=== PATIENT | female | born 1960 | race Two or more races ===

== ENCOUNTER 2017-11-16 22:30 | Emergency (ER) | payer OTHER ==
[~2017-11-16] VITALS: Ht 154.9 cm; Wt 72.6 kg
[~2017-11-16 22:30] MED LIST: ARIP10TA9 PO; ASPI-605 PO; DULO20CA18 PO; GABA600T PO; INSU100V7 SQ; LEVO100T9 PO; METF10002 PO; OMEP20TA5 PO; SIMV20TA6 PO
[2017-11-16 23:52] LABS: APPEARANCE,URINE SL CLOUDY (CLEAR); BILIRUBIN,URINE NEGATIVE (NEGATIVE); BLOOD, URINE NEGATIVE Ery/uL (NEGATIVE); COLOR,URINE YELLOW (YELLOW); KETONES,URINE 2+ (NEGATIVE); LEUKOCYTE ESTERASE ,URINE TRACE (NEGATIVE); NITRITE, URINE NEGATIVE (NEGATIVE); PROTEIN,URINE NEGATIVE (NEGATIVE); UGLUCOSE 3+ mg/dL (NEGATIVE); UROBILINOGEN,URINE 0.2 EU/dL (0.2)
[2017-11-16 23:59] LABS: BACTERIA,URINE 2+ /HPF (None Seen); WBC,URINE 51-80 /HPF (0-3)
[2017-11-17] LABS: SQUAMOUS EPITHELIAL CELL,UR Moderate /HPF (None Seen)
--- NOTE | 2017-11-17 | NUR ---
PT [facility]HIANNA FROM [facility] TO ER BED 11. C/O DIFFUSE ABDOMINAL PAIN W/ NAUSEA AND VOMITING SINCE 11/12/17. GOWNED AND PLACED ON MONITOR. STABLE VITALS. WILL CONT TO MONITOR.
--- NOTE | 2017-11-17 00:14 | NUR ---
IV LINE STARTED BLOOD DRAWN AND SENT TO LAB.
[2017-11-17] MEDS ORDERED: CEFTRIAXONE 1 G VIAL ONE (00:48)
[2017-11-17] MEDS ORDERED: ONDANSETRON HCL/PF 4 MG/2 ML VIAL ONE (00:49)
[2017-11-17] MEDS ORDERED: MORPHINE SULFATE INJ 4 MG/ML DISP.SYRIN ONE (00:49)
[2017-11-17] MEDS: IV NS 0.9% 500 ML BAG IV ONE (00:50)
[2017-11-17] MEDS: ONDANSETRON HCL/PF 4 MG/2 ML VIAL IVP ONE (00:51)
[2017-11-17] MEDS: MORPHINE SULFATE INJ 2 MG/ML DISP.SYRIN IV ONE (00:53)
[2017-11-17] MEDS: CEFTRIAXONE 1GM BAG (ER ONLY) 1 GM/50 ML PIGGYBACK IV ONE (01:00)
[2017-11-17 01:03] LABS: BASOPHILS % (AUTO) 0.2 % (0.0-2.0); EOSINOPHILS # (AUTO) 0.3 /CMM (0.0-0.7); EOSINOPHILS % (AUTO) 3.7 % (0.0-6.0); HEMATOCRIT 38 % (33-45); HEMOGLOBIN 13.1 g/dL (11.5-14.8); LYMPHOCYTES # (AUTO) 2.1 /CMM (0.8-4.8); LYMPHOCYTES % (AUTO) 29.1 % (20.0-44.0); MEAN CORPUSCULAR HEMOGLOBIN 34 PG (26.0-33.0); MEAN CORPUSCULAR HGB CONC 35 g/dl (31.0-36.0); MEAN CORPUSCULAR VOLUME 97 fL (82-100); MONOCYTES # (AUTO) 0.4 /CMM (0.1-1.30); MONOCYTES % (AUTO) 5.9 % (2.0-12.0); NEUTROPHILS # (AUTO) 4.5 /CMM (1.8-8.9); NEUTROPHILS % (AUTO) 61.1 % (43.0-81.0); PLATELET COUNT (AUTO) 268 /CMM (150-450); RDW COEFFICIENT OF VARIATION 14.3 (11.5-15.0); RED BLOOD CELL COUNT(AUTO) 3.92 MIL/uL (4.0-5.2); WHITE BLOOD COUNT (AUTO) 7.3 K/uL (4.3-11.0)
[2017-11-17 01:18] LABS: ALANINE AMINOTRANSFERASE 24 U/L (12-78); ALKALINE PHOSPHATASE 128 U/L (46-116); ASPARTATE AMINOTRANSFERASE 23 U/L (15-37); BILIRUBIN,TOTAL 0.3 mg/dL (0.2-1.0); CALCIUM, SERUM 9.5 mg/dL (8.5-10.1); CARBON DIOXIDE 24 mmol/L (21-32); CHLORIDE 97 mmol/L (98-107); LIPASE 53 U/L (73-393); POTASSIUM 4.5 mmol/L (3.5-5.1); SODIUM SERUM 131 mmol/L (136-145); TOTAL PROTEIN, SERUM 7.4 g/dL (6.4-8.2); UREA NITROGEN, BLOOD 25 mg/dL (7-18)
[2017-11-17 01:20] LABS: TROPONIN I < 0.017 ng/mL (0.00-0.056)
[2017-11-17 01:24] LABS: GLUCOSE 423 mg/dL (74-106)
--- NOTE | 2017-11-17 01:24 | NUR ---
REPORT TO CHARGE NURSE JOSUE FOR ANGELINA.
[2017-11-17 01:37] LABS: ALBUMIN 3.1 g/dL (3.4-5.0)
[2017-11-17 03:07] VITALS: BP 130/78
--- NOTE | 2017-11-17 03:08 | NUR ---
Patient discharged to home in stable condition. Written and verbal after care instructions given. Patient verbalizes understanding of instruction. IV removed. Catheter intact and site benign. Pressure and 4x4 applied to site. No bleeding noted. Pt ambulatory with a steady gait. VSS, NAD noted on DC. Denies complaint on DC.
== END 2017-11-17 03:09 | disposition home or self-care (01) ==
LOC: ER 22:35
DX: N39.0 Urinary tract infection, site not specified (principal); E11.65 Type 2 diabetes mellitus with hyperglycemia; I10 Essential (primary) hypertension; J44.9 Chronic obstructive pulmonary disease, unspecified; F32.9 Major depressive disorder, single episode, unspecified; F41.9 Anxiety disorder, unspecified; Z88.8 Allergy status to other drugs, medicaments and biological substances; Z79.82 Long term (current) use of aspirin; Z79.4 Long term (current) use of insulin
CPT/HCPCS: 36415; 71045; 74176; 80048; 80076; 81001; 82962; 83690; 84484; 85025; 87086; 93005; 96365; 96375; 99285; A4606; J0696 ×2; J2270; J2405; J7040; J7060; Z7610; 81000-TC

== ENCOUNTER 2018-03-15 14:46 | Emergency (ER) | payer OTHER ==
[~2018-03-15] VITALS: Ht 152.4 cm; Wt 65.8 kg
[~2018-03-15 14:46] MED LIST changes: +METF-442 PO; -METF10002 PO
--- NOTE | 2018-03-15 14:50 | NUR ---
PATIENT TO ED DT CHRONIC BACK PAIN, 07/22, NON RADIATING, WORSE TODAY. VSS
[2018-03-15] MEDS ORDERED: ONDANSETRON HCL/PF 4 MG/2 ML VIAL ONE (15:48)
[2018-03-15] MEDS ORDERED: MORPHINE SULFATE INJ 4 MG/ML DISP.SYRIN ONE (15:50)
[2018-03-15] MEDS ORDERED: ONDANSETRON 4 MG TAB.RAPDIS ONE (15:53)
[2018-03-15 15:58] VITALS: BP 112/80
--- NOTE | 2018-03-15 15:58 | NUR ---
Patient discharged to home in stable condition. Written and verbal after care instructions given. Patient verbalizes understanding of instruction.
[2018-03-15] MEDS ORDERED: MORPHINE SULFATE INJ 2 MG/ML DISP.SYRIN IM ONE (16:00)
[2018-03-15] MEDS ORDERED: ONDANSETRON 4 MG TAB.RAPDIS PO ONE (16:00)
== END 2018-03-15 15:59 | disposition home or self-care (01) ==
LOC: ER 14:52
DX: M54.5 Low back pain (principal); G89.29 Other chronic pain; I10 Essential (primary) hypertension; E11.9 Type 2 diabetes mellitus without complications; J44.9 Chronic obstructive pulmonary disease, unspecified; F32.9 Major depressive disorder, single episode, unspecified; F41.9 Anxiety disorder, unspecified; Z88.8 Allergy status to other drugs, medicaments and biological substances; Z79.4 Long term (current) use of insulin; Z79.82 Long term (current) use of aspirin
CPT/HCPCS: 96372; 99283; A4606; J2270; Q0162; Z7610; J2405

== ENCOUNTER 2018-03-18 16:38 | Emergency (ER) | payer OTHER ==
[~2018-03-18] VITALS: Ht 152.4 cm; Wt 65.8 kg
[2018-03-18 16:49] VITALS: BP 100/67
[2018-03-18] MEDS ORDERED: KETOROLAC TROMETHAMINE INJ 30 MG/ML VIAL IM ONE (17:00)
[2018-03-18] MEDS ORDERED: KETOROLAC TROMETHAMINE INJ 30 MG/ML VIAL ONE (17:12)
== END 2018-03-18 17:55 | disposition home or self-care (01) ==
LOC: ER 16:41
DX: M54.5 Low back pain (principal); I10 Essential (primary) hypertension; J44.9 Chronic obstructive pulmonary disease, unspecified; E11.9 Type 2 diabetes mellitus without complications; F20.9 Schizophrenia, unspecified; Z88.8 Allergy status to other drugs, medicaments and biological substances; Z79.82 Long term (current) use of aspirin; Z79.4 Long term (current) use of insulin
CPT/HCPCS: 72110-TC; A4606; J1885; Z7610

== ENCOUNTER 2021-01-17 09:05 | Inpatient (IN) | payer OTHER ==
[~2021-01-17] VITALS: Ht 162.6 cm; Wt 71.2 kg
[2021-01-17] VITALS (23 sets, daily range): BP systolic 90–118; BP diastolic 44–67
[~2021-01-17 09:05] MED LIST changes: -DULO20CA18 PO; +DULO20CA19 PO; +SIMV-46 PO; -SIMV20TA6 PO
--- NOTE | 2021-01-17 09:05 | NUR ---
PT BIBRA [facility] C/O HYPERGLYCEMIA AND SOB. PT IS AAOX4, NOTED MILD RESPIRATORY DISTRESS, HOOKED TO O2 AT 4 LPM VIA NC AND PHOTOGRAPH INSPECTOR. KEPT RESTED AND COMFORTABLE. WILL CONTINUE TO MONITOR.
[2021-01-17] MEDS ORDERED: IV NS 0.9% 1,000 ML BAG IV ONE ×2 (09:06→09:30)
--- NOTE | 2021-01-17 09:10 | NUR ---
AT BEDSIDE FOR EVAL
--- NOTE | 2021-01-17 09:18 | NUR ---
SEEN AND EXAMINED BY .
--- NOTE | 2021-01-17 09:25 | NUR ---
IV LINE ESTABLISHED BLOOD DRAWN AND SENT TO LAB.
[2021-01-17 09:44] LABS: BASOPHILS % (AUTO) 0.3 % (0.0-2.0); HEMOGLOBIN 7.5 g/dL (11.5-14.8)
--- NOTE | 2021-01-17 09:53 | NUR ---
URINE SPECIMEN COLLECTED ADN SENT TO LAB.
[2021-01-17 09:55] LABS: EOSINOPHILS % (AUTO) 0.2 % (0.0-6.0); HEMATOCRIT 24 % (33-45); LYMPHOCYTES % (AUTO) 18.3 % (20.0-44.0); MEAN CORPUSCULAR HGB CONC 31 g/dl (31.0-36.0); MEAN CORPUSCULAR VOLUME 118 fL (82-100); MONOCYTES # (AUTO) 0.4 /CMM (0.1-1.30); MONOCYTES % (AUTO) 7.4 % (2.0-12.0); NEUTROPHILS # (AUTO) 3.8 /CMM (1.8-8.9); NEUTROPHILS % (AUTO) 73.8 % (43.0-81.0); PLATELET COUNT (AUTO) 279 /CMM (150-450); RED BLOOD CELL COUNT(AUTO) 2.06 MIL/uL (4.0-5.2); WHITE BLOOD COUNT (AUTO) 5.2 K/uL (4.3-11.0)
[2021-01-17 09:57] LABS: BILIRUBIN,URINE Negative (NEGATIVE); COLOR,URINE YELLOW (YELLOW); LEUKOCYTE ESTERASE ,URINE Negative (NEGATIVE); NITRITE, URINE Negative (NEGATIVE); PROTEIN,URINE Negative (NEGATIVE); UGLUCOSE 500 MG/DL mg/dL (NEGATIVE); UROBILINOGEN,URINE 0.2 EU/dL (0.2)
[2021-01-17 10:09] LABS: BACTERIA,URINE Rare /HPF (None Seen); SQUAMOUS EPITHELIAL CELL,UR 0-2 /HPF (None Seen); WBC,URINE 0-2 /HPF (0-3)
[2021-01-17] MEDS ORDERED: INSU100V30 SQ (10:09)
[2021-01-17] MEDS ORDERED: MULT-447 PO (10:09)
[2021-01-17] MEDS ORDERED: QUET25TA PO ×2 (10:09)
[2021-01-17] MEDS ORDERED: BENZ-13 PO (10:09)
[2021-01-17] MEDS ORDERED: ZINC1CAP2 PO (10:09)
[2021-01-17] MEDS ORDERED: PROM6.256 PO (10:09)
[2021-01-17] MEDS ORDERED: MAGN64TA13 PO (10:09)
[2021-01-17] MEDS ORDERED: PANT40TA2 PO (10:09)
[2021-01-17] MEDS ORDERED: MAGN400O6 PO (10:09)
[2021-01-17] MEDS ORDERED: SENN-261 PO (10:09)
[2021-01-17] MEDS ORDERED: ALBU18HF2 IH (10:09)
[2021-01-17] MEDS ORDERED: NA P133E RC (10:09)
[2021-01-17] MEDS ORDERED: AMIN30LI2 PO (10:09)
[2021-01-17] MEDS ORDERED: ACET-868 PO (10:09)
[2021-01-17] MEDS ORDERED: NPH,100V SQ (10:09)
[2021-01-17] MEDS ORDERED: LISI20TA30 PO (10:09)
[2021-01-17] MEDS ORDERED: DIAZ5TAB4 PO (10:09)
[2021-01-17] MEDS ORDERED: LEVO175T7 PO (10:09)
[2021-01-17] MEDS ORDERED: CASP50VI2 IV (10:09)
[2021-01-17] MEDS ORDERED: ACET-2605 PO (10:09)
[2021-01-17] MEDS ORDERED: BISA10SU11 RC (10:09)
--- NOTE | 2021-01-17 10:10 | NUR ---
covid swab done and taken to the lab
[2021-01-17 10:19] LABS: ALANINE AMINOTRANSFERASE 20 U/L (12-78); ALBUMIN 1.9 g/dL (3.4-5.0); ALKALINE PHOSPHATASE 86 U/L (46-116); ASPARTATE AMINOTRANSFERASE 11 U/L (15-37); BILIRUBIN,DIRECT 0.1 mg/dL (0.0-0.2); BILIRUBIN,TOTAL 0.3 mg/dL (0.2-1.0); CALCIUM, SERUM 7.5 mg/dL (8.5-10.1); CHLORIDE 107 mmol/L (98-107); CREATININE 1.4 mg/dL (0.6-1.3); POTASSIUM 3.2 mmol/L (3.5-5.1); SODIUM SERUM 143 mmol/L (136-145); TOTAL PROTEIN, SERUM 5.1 g/dL (6.4-8.2); UREA NITROGEN, BLOOD 24 mg/dL (7-18)
[2021-01-17 10:20] LABS: CARBON DIOXIDE 7 mmol/L (21-32); GLUCOSE 535 mg/dL (74-106)
[2021-01-17] MEDS ORDERED: INSULIN REGULAR, HUMAN 100 UNIT in IV NS 0.9% 99 ML IV PRN ×2 (10:30)
[2021-01-17] MEDS ORDERED: IV PREMIX NS + 40 MEQ KCL 1,000 L IV PRN (10:30)
--- NOTE | 2021-01-17 10:30 | NUR ---
DR JENSEN CALLED NOW TALKING TO DR GALLARDO FOR PLAN OF CARE.
--- NOTE | 2021-01-17 10:32 | NUR ---
CALLED PHARMACY FOR INSULIN DRIP.
--- NOTE | 2021-01-17 10:36 | NUR ---
GOING TO ICU 258
[2021-01-17 10:54] LABS: LYMPHOCYTES % (MANUAL) 24 % (16-48); MONOCYTES % (MANUAL) 2 % (0-11.0); NEUTROPHILS % (MANUAL) 74 (42-76)
[2021-01-17 11:09] LABS: CREATININE 1.6 mg/dL (0.6-1.3); MAGNESIUM 1.7 mg/dL (1.8-2.4); PHOSPHORUS 3.5 mg/dL (2.5-4.9)
--- NOTE | 2021-01-17 11:10 | NUR ---
REPORT GIVEN TO ABI OCHOA FOR ANGELINA.
--- NOTE | 2021-01-17 11:38 | NUR ---
RN NOTES RECEIVED PT FROM ER , A/Ox3, ON 2L O2 N/C, ON TELE SR - ST HR IN 100'S, CHRIS DRINING TO GRAVITY, L HAND IV SITE G 22 AND L AC IV SITE G 18 , CLEAN, DRY AND INTACT, PT ON INSULIN GTT AT 6U/HR AT THIS TIME, ,IVF AT 125CC /HR RUNNING , SR UP x3, CALL LIGHT WITHIN EASY REACH, BED LOCKED AND IN LOWEST POSITION, CONTINUE TO MONITOR AND CHECK BLOOD GLUCOSE Q 1 HOUR PER MD ORDER
[2021-01-17] MEDS ORDERED: BENZONATATE 100 MG CAPSULE PO PRN (13:00)
[2021-01-17] MEDS ORDERED: ACETAMINOPHEN 325 MG TABLET PO PRN (13:00)
[2021-01-17] MEDS ORDERED: INS (REG) DRIP 100 U/100 ML NS IV PRN ×2 (13:00)
[2021-01-17] MEDS ORDERED: NA PHOS,M-B/NA PHOS,DI-BA 1 EA ENEMA RC PRN (13:00)
[2021-01-17] MEDS ORDERED: MAGNESIUM HYDROXIDE 30 ML UDC PO PRN (13:00)
[2021-01-17] MEDS ORDERED: ACETAMINOPHEN ES 500 MG TABLET PO PRN (13:00)
[2021-01-17] MEDS ORDERED: LISINOPRIL (20MG) 20 MG TABLET PO SCH (13:00)
[2021-01-17] MEDS ORDERED: BISACODYL SUPP (10 MG) 10 MG/SUPP.RECT SUPP.RECT RC PRN (13:00)
[2021-01-17] MEDS ORDERED: ALBUTEROL SULFATE INH 18 GM HFA.AER.AD IH PRN (13:00)
[2021-01-17] MEDS ORDERED: DIAZEPAM 5 MG TABLET PO PRN (13:00)
[2021-01-17] MEDS ORDERED: [UNRECOGNIZED DRUG - OTHER] IV SCH ×2 (14:00)
[2021-01-17] MEDS ORDERED: KCL IV SCH ×2 (14:00)
[2021-01-17] MEDS: MICAFUNGIN SODIUM 100 MG in IV NS 0.9% 100 ML IV SCH (14:38)
[2021-01-17 15:22] LABS: CALCIUM, SERUM 8.7 mg/dL (8.5-10.1); CREATININE 1.3 mg/dL (0.6-1.3); MAGNESIUM 1.5 mg/dL (1.8-2.4); PHOSPHORUS 1.6 mg/dL (2.5-4.9)
[2021-01-17] MEDS ORDERED: LEVOFLOXACIN 500 MG /D5W 100ML 500 MG in PREMIX 1 EA IV SCH (15:30)
[2021-01-17] MEDS ORDERED: IV NS 0.9% 1,000 ML IV ONE (15:30)
[2021-01-17] MEDS ORDERED: IV D5/ 0.9% NACL 1,000 ML IV PRN (15:30)
[2021-01-17 15:59] LABS: FERRITIN 278 ng/mL (8-388)
[2021-01-17 16:03] LABS: IRON, SERUM 47 ug/dl (50-175); TOTAL IRON BINDING CAPACITY 131 ug/dl (250-450)
[2021-01-17] MEDS: LEVOFLOXACIN 750 MG /D5W 150ML 750 MG in PREMIX 1 EA IV SCH (17:16)
--- NOTE | 2021-01-17 18:00 | NUR ---
RN NOTES PT REMANINS ON INSULIN GTT , ACCU CHECK Q 1 HR, VSS STABLE, A/Ox3, ON TELE SR , WILL ENDORSE TO SANDER HAND NURSE FOR CONTINUITY OF CARE .
[2021-01-17] MEDS ORDERED: K PHOS NEUTRAL 250 MG TABLET PO ONE (18:30)
[2021-01-17] MEDS: Magnesium 1GM/D5W 100ML PREMIX 100 ML IV SCH ×2 (18:46→19:55)
--- NOTE | 2021-01-17 20:15 | NUR ---
RN NOTES LAB CAME TO DRAW BLOOD FOR BMP. PATIENT HAS INSULIN DRIP RUNNING AND NOTICED PATIENT IS VERY SENSITIVE TO PAIN AND PATIENT IS A HARD STICK CALLED AND SPOKE TO DR. JENSEN WITH ORDER TO PLACED MIDLINE. SINCE PATIENT WILL NEED MORE IV ACCESS TO START BLOOD. INFORMED PATIENT AND EDUCATE THE PATIENT REGARDING THE BLOOD TRANSFUSION AND PATIENT SIGNED CONSENT.
[2021-01-17 20:35] LABS: CALCIUM, SERUM 8.4 mg/dL (8.5-10.1)
[2021-01-17] MEDS ORDERED: INSULIN GLARGINE, 100 UNIT/ML CARTRIDGE SQ SCH (21:30)
[2021-01-17] MEDS ORDERED: DEXTROSE 50%-WATER 50 ML DISP.SYRIN IV PRN (21:30)
--- NOTE | 2021-01-17 21:30 | NUR ---
RN NOTES CALLED AND SPOKE TO DR. JENSEN REGARDING PATIENT ANION GAP OF 13 PER MD TO DC IV D5NS AND CHANGE IT TO NS @ 100 ML/HR AND GAVE LANTUS 20 UNITS NOW AND DC INSULIN DRIP AFTER 2 HOURS AND DC BMP Q4H AND START ACCUCHECK ACHS WITH MODERATE SLIDING SCALE. NOTED AND CARRIED OUT ORDERS
[2021-01-17] MEDS: IV NS 0.9% 1,000 ML IV PRN (21:53)
[2021-01-17] MEDS ORDERED: INSULIN GLARGINE, 100 UNIT/ML CARTRIDGE SQ ONE (21:55)
[2021-01-17] MEDS: BLOOD SUGAR DIAGNOSTIC 1 EACH STRIP VI SCH (22:09)
--- NOTE | 2021-01-17 22:20 | NUR ---
RN NOTES STARTED FIRST UNIT OF PRBC .. PATIENT IS AWAKE , CONSENT SIGNED BY PATIENT AT BEDSIDE. NO ADVERSE REACTION SHOWS. VSS. CONT. TO MONITOR.
[2021-01-17] MEDS: SENNOSIDES 8.6 MG TABLET PO SCH (22:34)
[2021-01-17] MEDS: QUETIAPINE FUMARATE 25 MG TABLET PO SCH (22:35)
--- NOTE | 2021-01-17 23:15 | NUR ---
RN NOTES INSULIN DRIP STOPPED AT THIS TIME. PER DR. JENSEN ORDER LAST BS CHECKED 211 MG/DL LAST ANION GAP 13
[2021-01-18] VITALS (21 sets, daily range): BP systolic 93–125; BP diastolic 46–86
--- NOTE | 2021-01-18 02:28 | NUR ---
RN NOTES FIRST UNIT OF BAG FINISHED TOLERATED WELL WITHUT ADVERSE REACTION. VSS. 2ND BAG STARTED AT THIS TIME. PATIENT ASLEEP WELL, BREATHING EVEN AND UNLABORED. DENIES PAIN OR CHEST PAIN. AFEBRILE. WILL CONTINUE TO MONITOR
--- NOTE | 2021-01-18 05:30 | NUR ---
RN NOTES SECOND UNIT OF PRBC DONE AT THIS TIME. PATIENT IS AOX4, VERBALLY RESPONSIVE . NO ADVERSE REACTION FROM BT. AFEBRILE. VSS. DENIES CHEST PAIN OR ANY DIFFICULT OF BREATHING. WILL CONTINUE TO MONITOR.
[2021-01-18] MEDS: IV NS 0.9% 1,000 ML IV PRN ×2 (06:22→14:42)
--- NOTE | 2021-01-18 06:46 | NUR ---
RN NOTES PATIENT ASLEEP WELL ON BED. NO ACUTE RESPIRATORY DISTRESS. AFEBRILE. VSS O2 2LPM VIA NC TOELRATED WELL SATURATION 99%. NSR ON TELE MONITOR. PATIENT REFUSED TO HAVE BEDBATH AT THIS TIME , ENCOURAGED GOOD HYGIENE EXPLAINED BENEFITS. PATIENT STATED THAT SHE WILL GET CLEAN LATER IN THE MORNING WILL ENDORSE CONTINUITY OF CARE TO AM NURSE.
--- NOTE | 2021-01-18 07:15 | NUR ---
RN INITIAL NOTES RECEIVED PT ASLEEP, EASILY AROUSABLE. ON 02 VIA NC AT 2LPM. NO SOB NOTED. NO SIGNS OF APIN NOTED. IV LINES IN PLACE. IVF INFUSING. PEREZ IN PLACE. FOR WOUND CONSULT. PT COMFORTABLE. CALL LIGHT WITHIN REACH.
[2021-01-18] MEDS ORDERED: LEVOTHYROXINE SODIUM 175 MCG TABLET PO SCH (07:30)
[2021-01-18] MEDS: BLOOD SUGAR DIAGNOSTIC 1 EACH STRIP VI SCH ×4 (07:34→21:38)
[2021-01-18] MEDS: PANTOPRAZOLE 40 MG TABLET.DR PO SCH (07:36)
[2021-01-18 07:55] LABS: BASOPHILS % (AUTO) 0.5 % (0.0-2.0); EOSINOPHILS % (AUTO) 3.8 % (0.0-6.0); HEMATOCRIT 35 % (33-45); HEMOGLOBIN 11.7 g/dL (11.5-14.8); LYMPHOCYTES # (AUTO) 1.6 /CMM (0.8-4.8); MEAN CORPUSCULAR HGB CONC 34 g/dl (31.0-36.0); MEAN CORPUSCULAR VOLUME 99 fL (82-100); MONOCYTES # (AUTO) 0.4 /CMM (0.1-1.30); MONOCYTES % (AUTO) 7.8 % (2.0-12.0); NEUTROPHILS # (AUTO) 3.2 /CMM (1.8-8.9); NEUTROPHILS % (AUTO) 58.9 % (43.0-81.0); PLATELET COUNT (AUTO) 221 /CMM (150-450); RED BLOOD CELL COUNT(AUTO) 3.49 MIL/uL (4.0-5.2); WHITE BLOOD COUNT (AUTO) 5.5 K/uL (4.3-11.0)
[2021-01-18 08:08] LABS: CALCIUM, SERUM 8.5 mg/dL (8.5-10.1); CREATININE 0.8 mg/dL (0.6-1.3); POTASSIUM 3.6 mmol/L (3.5-5.1)
[2021-01-18 08:11] LABS: PHOSPHORUS 1.8 mg/dL (2.5-4.9)
[2021-01-18 08:19] LABS: THYROID STIMULATING HORMONE 15.448 uIU/mL (0.358-3.74)
[2021-01-18] MEDS: MULTIVIT W/MINERALS 1 TAB TABLET PO SCH (08:22)
[2021-01-18] MEDS: ASPIRIN EC 81 MG TABLET.DR PO SCH (08:22)
[2021-01-18] MEDS: PROSOURCE / PROSTAT (PYXIS) 30 ML UDC PO SCH (08:22)
[2021-01-18] MEDS: ZINC SULFATE 220 MG CAPSULE PO SCH (08:22)
[2021-01-18] MEDS: QUETIAPINE FUMARATE 25 MG TABLET PO SCH ×2 (08:22→21:11)
[2021-01-18] MEDS: MAGNESIUM CHLORIDE 64 MG TABLET.SA PO SCH (08:23)
[2021-01-18 08:37] LABS: MAGNESIUM 1.8 mg/dL (1.8-2.4)
[2021-01-18] MEDS ORDERED: INSULIN GLARGINE, 100 UNIT/ML CARTRIDGE SQ SCH (09:00)
[2021-01-18] MEDS: K PHOS NEUTRAL 250 MG TABLET PO SCH ×3 (09:26→16:48)
[2021-01-18] MEDS: ENOXAPARIN SODIUM 40 MG/0.4 ML DISP.SYRIN SQ SCH (09:27)
[2021-01-18] MEDS: INSULIN REGULAR, HUMAN 100 UNIT/ML 3 ML VIAL SQ PRN ×2 (09:35→12:30)
--- NOTE | 2021-01-18 09:38 | NUR ---
WOUND CARE CONSULT: PT PRESENTS WITH INTACT DEEP TISSUE INJURIES TO SACRUM AND BILATERAL HEELS, PRESENT ON ADMISSION. DR STEWART AND DR SILVESTRE NOTIFIED OF CONSULT REQUESTS FOR WOUND CARE. PT IS ON TEJAS ISOFLEX LOW AIRLOSS BED. RECOMMENDATIONS MADE FOR SKN PROTECTION. DISCUSSED WITH NURSING STAFF. IN AGREEMENT WITH PLAN OF CARE. Addendum: 01/18/21 at 0940 by HONG JENSEN WNDNU Amended: Links added.
[2021-01-18] MEDS ORDERED: Z GUARD REMEDY 2 OZ OINT TP PRN (10:00)
[2021-01-18] MEDS: Z GUARD REMEDY 2 OZ OINT TP SCH (11:55)
--- NOTE | 2021-01-18 13:05 | NUR ---
RN NOTES PT TRANSFERRED TO [facility]-. PT A/O, ON 02 VIA NC AT 2LPM. NO SOB NOTED. DENIES ANY PAIN. IV LINES IN PLACE. IVF INFUSING. IN STABLE CONDITION. ABI PELAYO TOOK OVER PT'S CARE.
--- NOTE | 2021-01-18 13:08 | NUR ---
MS/media services director Patient transferred from ICU. A/O X3, vital signs recorded as per unit protocol. Denies any pain or discomfort. Oriented to new surroundings, call light within reach. Will continue to monitor and ensure safety.
[2021-01-18] MEDS: MICAFUNGIN SODIUM 100 MG in IV NS 0.9% 100 ML IV SCH (14:42)
--- NOTE | 2021-01-18 16:00 | NUR ---
MS/RN Wheezing Patient noted to be wheezing. Dr Bush called, order given for albuterol and atrovent unit dose every four hours prn.
--- NOTE | 2021-01-18 16:45 | NUR ---
MS/RN Blood sugar Blood sugar this evening 47, D50 administered and sugar rechecked after 15 minutes. Level now 136.
[2021-01-18] MEDS: PROMETHAZINE HCL SYRUP 6.25 MG/5 ML UDC PO PRN ×2 (16:48→21:11)
--- NOTE | 2021-01-18 16:55 | NUR ---
MS/RN Cough Patient requesting something for productive cough. Phenergan 5ml administered as ordered.
[2021-01-18] MEDS: IPRATROPIUM NEB FS 0.5 MG/2.5 ML AMPUL.NEB NEB PRN ×2 (17:26→22:29)
[2021-01-18] MEDS: ALBUTEROL FS 2.5 MG/0.5 ML VIAL.NEB NEB PRN ×2 (17:26→22:29)
--- NOTE | 2021-01-18 18:04 | NUR ---
MS/RN End note Patient remains in stable condition. Wheezing now less audible, coughing less. Saturation on 2l 97%, per patient she feels better and not shirt of breath. Latest blood sugar 136, patient encouraged to eat snack before sleeping to prevent blood sugar dropping overnight. IV fluids infusing at 100ml/hr, no signs of infiltration seen. Safety measures in place, call light within reach. Will continue to monitor and endorse to nightman.
--- NOTE | 2021-01-18 19:51 | NUR ---
MS RN OPENING NOTES PATIENT IN BED A/OX4; ABLE TO MAKE NEEDS KNOWN. ON O2 4LPM VIA NASAL CANNULA; TOLERATING WELL; COUGHING NOTED. F/C PATENT AND INTACT; DRAINING CLEAR YELLOW URINE. LAC #18G IV - INFUSING NS @ 100ML/HR; PATENT AND INTACT. PATIENT DENIES PAIN OR DISCOMFORT. SAFETY MEASURES IN PLACE: BED IN LOWEST LOCKED POSITION, CALL LIGHT WITHIN EASY REACH, BED ALARMS ON, SIDE RAILS UPX2. PATIENT MEDICALLY STABLE AT THIS TIME.
[2021-01-18] MEDS: SENNOSIDES 8.6 MG TABLET PO SCH (21:11)
[2021-01-18] MEDS: *INSULIN REGULAR(HUMULIN R)HUM 100 UNIT/ML VIAL SQ PRN (21:36)
[2021-01-19] MEDS: ALBUTEROL FS 2.5 MG/0.5 ML VIAL.NEB NEB PRN ×2 (04:39→08:19)
[2021-01-19] MEDS: IPRATROPIUM NEB FS 0.5 MG/2.5 ML AMPUL.NEB NEB PRN ×2 (04:39→08:19)
[2021-01-19] MEDS: IV NS 0.9% 1,000 ML IV PRN (05:50)
[2021-01-19] MEDS: PANTOPRAZOLE 40 MG TABLET.DR PO SCH (06:43)
[2021-01-19] MEDS: BLOOD SUGAR DIAGNOSTIC 1 EACH STRIP VI SCH ×5 (06:45→21:16)
[2021-01-19] MEDS: LEVOTHYROXINE SODIUM 100 MCG TABLET PO SCH (06:45)
[2021-01-19] MEDS: INSULIN REGULAR, HUMAN 100 UNIT/ML 3 ML VIAL SQ PRN (06:45)
[2021-01-19 06:56] LABS: BASOPHILS % (AUTO) 0.4 % (0.0-2.0); EOSINOPHILS % (AUTO) 4.8 % (0.0-6.0); HEMATOCRIT 34 % (33-45); HEMOGLOBIN 11.5 g/dL (11.5-14.8); LYMPHOCYTES # (AUTO) 1.9 /CMM (0.8-4.8); LYMPHOCYTES % (AUTO) 50.5 % (20.0-44.0); MEAN CORPUSCULAR HGB CONC 34 g/dl (31.0-36.0); MEAN CORPUSCULAR VOLUME 98 fL (82-100); MONOCYTES # (AUTO) 0.4 /CMM (0.1-1.30); MONOCYTES % (AUTO) 10.3 % (2.0-12.0); NEUTROPHILS # (AUTO) 1.3 /CMM (1.8-8.9); PLATELET COUNT (AUTO) 234 /CMM (150-450); RED BLOOD CELL COUNT(AUTO) 3.41 MIL/uL (4.0-5.2); WHITE BLOOD COUNT (AUTO) 3.8 K/uL (4.3-11.0)
[2021-01-19 07:02] LABS: CALCIUM, SERUM 7.9 mg/dL (8.5-10.1); CREATININE 0.6 mg/dL (0.6-1.3); PHOSPHORUS 2.8 mg/dL (2.5-4.9)
--- NOTE | 2021-01-19 07:27 | NUR ---
MS RN CLOSING NOTES PATIENT IN BED A/OX4; ABLE TO MAKE NEEDS KNOWN. ON O2 2LPM VIA NASAL CANNULA; TOLERATING WELL; COUGHING NOTED. F/C PATENT AND INTACT; DRAINING CLEAR YELLOW URINE. LAC #18G IV - INFUSING NS @ 100ML/HR; PATENT AND INTACT. PATIENT DENIES PAIN OR DISCOMFORT. SAFETY MEASURES IN PLACE: BED IN LOWEST LOCKED POSITION, CALL LIGHT WITHIN EASY REACH, BED ALARMS ON, SIDE RAILS UPX2. PATIENT MEDICALLY STABLE AT THIS TIME. ENDORSED ANGELINA TO ONCOMING MORNING RN
[2021-01-19 08:00] VITALS: BP 144/67
--- NOTE | 2021-01-19 08:17 | NUR ---
MS RN OPENING NOTES RECEIVED PATIENT IN BED, AWAKE, A/OX4; ABLE TO MAKE NEEDS KNOWN. ON O2 2LPM VIA NASAL CANNULA; TOLERATING WELL. PATIENT COMPLAINING OF COUGHING EVERY TIME SHE IS EATING, SWALLOW EVAL ORDERED, RT AT BEDSIDE. F/C PATENT AND INTACT; DRAINING CLEAR YELLOW URINE. LAC #18G IV ACCESS PRESENT INFUSING NS @ 100ML/HR. PATIENT DENIES PAIN AT THIS TIME. SAFETY PRECAUTIONS IN PLACE: BED IN LOW POSITION AND LOCKED, RAILS UP X2, CALL LIGHT WITHIN REACH, BED ALARMS ON. WILL CONTINUE TO MONITOR PATIENT.
[2021-01-19] MEDS: INSULIN GLARGINE, 100 UNIT/ML CARTRIDGE SQ SCH (09:00)
[2021-01-19] MEDS: ALBUTEROL FS 2.5 MG/0.5 ML VIAL.NEB NEB SCH ×3 (09:00→20:19)
[2021-01-19] MEDS: ZINC SULFATE 220 MG CAPSULE PO SCH (09:51)
[2021-01-19] MEDS: MULTIVIT W/MINERALS 1 TAB TABLET PO SCH (09:51)
[2021-01-19] MEDS: PROSOURCE / PROSTAT (PYXIS) 30 ML UDC PO SCH (09:52)
[2021-01-19] MEDS: QUETIAPINE FUMARATE 25 MG TABLET PO SCH ×2 (09:52→21:03)
[2021-01-19] MEDS: Z GUARD REMEDY 2 OZ OINT TP SCH (09:52)
[2021-01-19] MEDS: MAGNESIUM CHLORIDE 64 MG TABLET.SA PO SCH (09:52)
[2021-01-19] MEDS: ASPIRIN EC 81 MG TABLET.DR PO SCH (09:52)
[2021-01-19] MEDS: POTASSIUM CHLORIDE 20 MEQ TAB.PRT.SR PO SCH ×2 (09:52→10:51)
[2021-01-19] MEDS: ENOXAPARIN SODIUM 40 MG/0.4 ML DISP.SYRIN SQ SCH (09:56)
--- NOTE | 2021-01-19 10:23 | NUR ---
MS RN NOTES CHECKED ACCU-CHECK BEFORE ADMINISTERING LANTUS; BS 66. LANTUS NON-ADMINISTERED. APPLE JUICE GIVEN TO PATIENT.
[2021-01-19] MEDS: IPRATROPIUM NEB FS 0.5 MG/2.5 ML AMPUL.NEB NEB SCH ×2 (13:28→20:19)
[2021-01-19] MEDS: MICAFUNGIN SODIUM 100 MG in IV NS 0.9% 100 ML IV SCH (14:39)
[2021-01-19 16:00] VITALS: BP 138/75
[2021-01-19] MEDS: LEVOFLOXACIN 750 MG /D5W 150ML 750 MG in PREMIX 1 EA IV SCH (16:39)
--- NOTE | 2021-01-19 18:52 | NUR ---
MS RN CLOSING NOTES PATIENT REMAINS IN BED, AWAKE, A/OX4; ABLE TO MAKE NEEDS KNOWN. ON O2 2LPM VIA NASAL CANNULA; TOLERATING WELL. F/C REMOVED PER MD ORDER WITH AN OUTPUT OF 400 MLS. LAC #18G IV ACCESS PRESENT AND INTACT. PATIENT DENIES PAIN DURING THE DAY. ALL NEEDS ATTENDED THROUGHOUT THE DAY. SAFETY PRECAUTIONS IN PLACE: BED IN LOW POSITION AND LOCKED, RAILS UP X2, CALL LIGHT WITHIN REACH, BED ALARMS ON. WILL ENDORSE TO PROFESSIONAL SKATEBOARDER NURSE.
[2021-01-19 20:00] VITALS: BP 145/76
--- NOTE | 2021-01-19 20:00 | NUR ---
RN OPENING NOTE PATIENT RECEIVED IN IN BED, WATCHING TV, A/OX4; DENIES ANY PAIN OR DISCOMFORT AT THIS TIME. ON O2 4LPM VIA NASAL CANNULA; TOLERATING WELL; NON PRODUCTIVE COUGH NOTED INTERMITTENTLY. PATIENT VOIDING CLEAR YELLOW URINE ON BEDPAN.. LAC #18G IV PATENT AND INTACT. SAFETY MEASURES IN PLACE: BED IN LOWEST LOCKED POSITION, CALL LIGHT WITHIN EASY REACH, BED ALARMS ON, SIDE RAILS UP X3. WILL CONTINUE MONITORING CLOSELY.
[2021-01-19] MEDS: GUAIFENESIN/D-METHORPHAN HB 5 ML UDC PO PRN (21:03)
[2021-01-19] MEDS: SENNOSIDES 8.6 MG TABLET PO SCH (21:03)
[2021-01-19] MEDS: *INSULIN REGULAR(HUMULIN R)HUM 100 UNIT/ML VIAL SQ PRN (21:29)
[2021-01-20] MEDS: IPRATROPIUM NEB FS 0.5 MG/2.5 ML AMPUL.NEB NEB SCH ×3 (01:17→13:49)
[2021-01-20] MEDS: ALBUTEROL FS 2.5 MG/0.5 ML VIAL.NEB NEB SCH ×3 (01:17→13:49)
[2021-01-20] MEDS: GUAIFENESIN/D-METHORPHAN HB 5 ML UDC PO PRN (02:52)
[2021-01-20] MEDS: BLOOD SUGAR DIAGNOSTIC 1 EACH STRIP VI SCH ×2 (06:33→12:05)
[2021-01-20 07:19] LABS: CALCIUM, SERUM 8.2 mg/dL (8.5-10.1); CREATININE 0.6 mg/dL (0.6-1.3); POTASSIUM 3.9 mmol/L (3.5-5.1)
--- NOTE | 2021-01-20 07:55 | NUR ---
MS RN OPENING NOTE PATIENT IS IN BED RESTING COMFORTABLY. PATIENT IS ON 2L OXYGEN ON NC. TOLERATING WELL, NO SOB NOTED. PATIENT IS ABLE TO USE BEDPAN, AND TURN. SAFETY PRECAUTIONS ARE ON. BED IN THE LOWEST POSITION, SIDE RAILS ARE UP, CALL LIGHT WITHIN REACH. WILL CONTINUE TO MONITOR CLOSELY THROUGHOUT THE SHIFT.
[2021-01-20 08:00] VITALS: BP 150/75
[2021-01-20] MEDS: MAGNESIUM CHLORIDE 64 MG TABLET.SA PO SCH (08:22)
[2021-01-20] MEDS: QUETIAPINE FUMARATE 25 MG TABLET PO SCH (08:23)
[2021-01-20] MEDS: ZINC SULFATE 220 MG CAPSULE PO SCH (08:23)
[2021-01-20] MEDS: MULTIVIT W/MINERALS 1 TAB TABLET PO SCH (08:23)
[2021-01-20] MEDS: ASPIRIN EC 81 MG TABLET.DR PO SCH (08:23)
[2021-01-20] MEDS: PANTOPRAZOLE 40 MG TABLET.DR PO SCH (08:23)
[2021-01-20] MEDS: LEVOTHYROXINE SODIUM 100 MCG TABLET PO SCH (08:23)
[2021-01-20] MEDS: ENOXAPARIN SODIUM 40 MG/0.4 ML DISP.SYRIN SQ SCH (08:24)
[2021-01-20] MEDS: INSULIN GLARGINE, 100 UNIT/ML CARTRIDGE SQ SCH (08:27)
[2021-01-20] MEDS: Z GUARD REMEDY 2 OZ OINT TP SCH (08:36)
[2021-01-20] MEDS ORDERED: AMOX-430 PO (09:21)
[2021-01-20] MEDS ORDERED: LEVO137T24 PO (09:21)
[2021-01-20] MEDS ORDERED: Insulin Glargine,Hum SQ (09:21)
[2021-01-20] MEDS ORDERED: *INS REG SQ (09:21)
[2021-01-20] MEDS ORDERED: ENOX40DI SQ (09:21)
[2021-01-20] MEDS: PROSOURCE / PROSTAT (PYXIS) 30 ML UDC PO SCH (09:57)
[2021-01-20] MEDS ORDERED: PNEUMOCOCCAL 23-VAL P-SAC VAC 0.5 ML VIAL SQ ONE (12:00)
[2021-01-20] MEDS ORDERED: INFLUENZA VACCINE 2020-21 0.5 ML DISP.SYRIN IM ONE (12:00)
[2021-01-20] MEDS: INSULIN REGULAR, HUMAN 100 UNIT/ML 3 ML VIAL SQ PRN (12:11)
--- NOTE | 2021-01-20 15:55 | NUR ---
MS WOOD DIE MAKER NOTE PATIENT IS IN RESTING. PATIENT IS IN NO ACUTE DISTRESS. PATIENT IS MEDICALLY STABLE TO BE DISCHARGED. PATIENTS NEEDS WERE ADDRESSED DURING PATIENTS STAY. PATIENT HAS BILATERAL HEEL REDNESS AND SCARAL REDNESS. PUCITURES TAKENA DN Addendum: 01/20/21 at 1606 by SAMUEL RITCHIE RN MS WOOD DIE MAKER NOTE PATIENT IS IN BED RESTING. PATIENT IS IN NO ACUTE DISTRESS. PATIENT IS MEDICALLY STABLE TO BE DISCHARGED. PATIENT IS ON 2L OXYGEN, TOLERATING WELL, NO SOB NOTED. PATIENTS NEEDS WERE ADDRESSED DURING PATIENTS STAY. PATIENT HAS BILATERAL HEEL REDNESS AND SACRAL REDNESS. PICTURES TAKEN AND PLACED IN THE CHART. PATIENTS IV AND ID BAND REMOVED. PATIENTS BELONGINGS LIST IS SIGNED. DISCHARGE INSTRUCTIONS PROVIDED. PATIENT VERBALIZED UNDERSTANDING. PATIENT WAS PICKED UP BY TWO COMMUNICATION CENTER OPERATOR TO BE TRANSFERRED TO [facility]. MD IS AWARE OF DISCHARGE.
== END 2021-01-20 15:15 | DRG 139 ==
LOC: ER 09:05 → ICU 11:22 → MED 01-18 13:11
PROVIDERS: ADMIT Internal Medicine; ATTEND Internal Medicine
PROC: 30233N1 Transfusion of Nonautologous Red Blood Cells into Peripheral Vein, Percutaneous Approach (ICD-10-PCS; principal; 2021-01-17)
DX: J15.9 Unspecified bacterial pneumonia (principal); E11.10 Type 2 diabetes mellitus with ketoacidosis without coma; E03.9 Hypothyroidism, unspecified; E86.0 Dehydration; J44.0 Chronic obstructive pulmonary disease with (acute) lower respiratory infection; F43.10 Post-traumatic stress disorder, unspecified; J20.9 Acute bronchitis, unspecified; Z79.4 Long term (current) use of insulin; I10 Essential (primary) hypertension; G89.29 Other chronic pain; F20.9 Schizophrenia, unspecified; Z91.041 Radiographic dye allergy status; Z91.048 Other nonmedicinal substance allergy status; Z79.51 Long term (current) use of inhaled steroids; Z79.899 Other long term (current) drug therapy; Z79.82 Long term (current) use of aspirin; F31.9 Bipolar disorder, unspecified; D53.9 Nutritional anemia, unspecified; L89.626 Pressure-induced deep tissue damage of left heel; L89.616 Pressure-induced deep tissue damage of right heel; L60.3 Nail dystrophy; M62.562 Muscle wasting and atrophy, not elsewhere classified, left lower leg; M62.561 Muscle wasting and atrophy, not elsewhere classified, right lower leg; L89.156 Pressure-induced deep tissue damage of sacral region; Z79.890 Hormone replacement therapy; E11.65 Type 2 diabetes mellitus with hyperglycemia; J44.1 Chronic obstructive pulmonary disease with (acute) exacerbation
CPT/HCPCS: 36415; 71045-TC; 71250-TC; 80048-TC; 80076-TC; 81001; 82728-TC; 82962-TC; 83540-TC; 83605-TC; 83735-TC; 84100-TC; 84443-TC; 84484-TC; 85025-TC; 85730-TC; 86850-TC; 87040-TC; 87081-TC; 87086-TC; 90732; 92526; 92611-TC; 94799-TC; 97112-TC; 97116-TC; 97530-TC; A4216; G0378; J1650; J1815; J1956; J2248; J3475; J3480; J3490; J7030; J7042; J7050; P9016-BL; Q0169; Q2036; U0003

== ENCOUNTER 2021-02-01 13:04 | Inpatient (IN) | payer OTHER ==
[~2021-02-01] VITALS: Ht 157.5 cm; Wt 65.3 kg
[~2021-02-01 13:04] MED LIST changes: +*INS REG SQ; +ACET-868 PO; +ALBU18HF2 IH; +AMIN30LI2 PO; +AMOX-430 PO; -ARIP10TA9 PO; +BENZ-13 PO; +BISA10SU11 RC; +DIAZ5TAB4 PO; -DULO20CA19 PO; +ENOX40DI SQ; -GABA600T PO; -INSU100V7 SQ; +Insulin Glargine,Hum SQ; -LEVO100T9 PO; +LEVO137T24 PO; +LISI20TA30 PO; +MAGN400O6 PO; +MAGN64TA13 PO; -METF-442 PO; +MULT-447 PO; +NA P133E RC; -OMEP20TA5 PO; +PANT40TA2 PO; +PROM6.256 PO; +QUET25TA PO; +SENN-261 PO; -SIMV-46 PO; +ZINC1CAP2 PO
--- NOTE | 2021-02-01 13:08 | NUR ---
BIBRA 60 from [facility] c/o hyperglycemia, initial WS=903UP/DL, Pt was given 1L NS + 16 Units of Novolin 3x FOURDRINIER WIRE WEAVER, latest XD=448 in the field. Patient a/ox3, c/o sob, pulse ox shows 96-98% on room air. Patient attached to the monitor.
[2021-02-01] MEDS ORDERED: IV NS 0.9% 1,000 ML BAG IV ONE ×2 (13:30→16:00)
[2021-02-01] MEDS ORDERED: LEVO200T8 PO (13:39)
[2021-02-01] MEDS ORDERED: INSU100V30 SQ (13:39)
[2021-02-01] MEDS ORDERED: GLUC1KIT IM (13:39)
[2021-02-01] MEDS ORDERED: ACET-2605 PO (13:39)
[2021-02-01] MEDS ORDERED: ASCO-352 PO (13:39)
[2021-02-01] MEDS ORDERED: INSU100V7 SQ (13:39)
[2021-02-01] MEDS ORDERED: ZINC56.713 TP (13:39)
[2021-02-01] MEDS ORDERED: ACET-868 PO (13:39)
[2021-02-01] MEDS ORDERED: ONDANSETRON HCL/PF 4 MG/2 ML VIAL ONE (13:58)
[2021-02-01 14:00] LABS: BASOPHILS % (AUTO) 0.1 % (0.0-2.0); HEMATOCRIT 40 % (33-45); HEMOGLOBIN 13.1 g/dL (11.5-14.8); LYMPHOCYTES # (AUTO) 1.6 /CMM (0.8-4.8); LYMPHOCYTES % (AUTO) 14.9 % (20.0-44.0); MEAN CORPUSCULAR HGB CONC 33 g/dl (31.0-36.0); MEAN CORPUSCULAR VOLUME 100 fL (82-100); MONOCYTES # (AUTO) 0.9 /CMM (0.1-1.30); MONOCYTES % (AUTO) 8.5 % (2.0-12.0); NEUTROPHILS # (AUTO) 8.4 /CMM (1.8-8.9); NEUTROPHILS % (AUTO) 76.5 % (43.0-81.0); PLATELET COUNT (AUTO) 311 /CMM (150-450); RED BLOOD CELL COUNT(AUTO) 4.03 MIL/uL (4.0-5.2)
[2021-02-01 14:12] LABS: CALCIUM, SERUM 9.8 mg/dL (8.5-10.1); CREATININE 1.8 mg/dL (0.6-1.3); POTASSIUM 3.9 mmol/L (3.5-5.1)
[2021-02-01 14:17] LABS: ALBUMIN 2.9 g/dL (3.4-5.0); BILIRUBIN,DIRECT 0.1 mg/dL (0.0-0.2); BILIRUBIN,TOTAL 0.3 mg/dL (0.2-1.0); TOTAL PROTEIN, SERUM 7.7 g/dL (6.4-8.2)
--- NOTE | 2021-02-01 14:27 | NUR ---
PATIENT HAD A BOWEL MOVEMENT, PERICARE DONE. PATIENT ASSISTED, WAS ABLE TO MOVE INDEPENDENTLY IN BED.
--- NOTE | 2021-02-01 14:28 | NUR ---
PATIENT PLACED ON A BEDPAN FOR A URINE SAMPLE.
[2021-02-01] MEDS ORDERED: ONDANSETRON HCL/PF 4 MG/2 ML VIAL IV ONE (14:30)
[2021-02-01 14:45] LABS: ABG BASE EXCESS -5.1 mmol/L; ABG OXYGEN SATURATION 93.1 % (92.0-98.5); ABG PCO2 37.4 mmHg (35.0-45.0); ABG PH 7.346 (7.350-7.450); ABG PO2 68.3 mmHg (75.0-100.0); AaDO2 36.6 mmHg; COHb 0.3 % (0.5-1.5); MetHb 0.4 % (0.0-1.5); O2Hb 92.4 % (94.0-97.0); SITE, ABG Right Radial; VENT MODE, BG RA
[2021-02-01 15:10] LABS: BILIRUBIN,URINE LARGE (NEGATIVE); COLOR,URINE YELLOW (YELLOW); LEUKOCYTE ESTERASE ,URINE NEGATIVE (NEGATIVE); NITRITE, URINE NEGATIVE (NEGATIVE); PH,URINE 5.5 (5.0-8.0); PROTEIN,URINE TRACE mg/dl (NEGATIVE); UGLUCOSE >=1000 mg/dL (NEGATIVE); UROBILINOGEN,URINE 0.2 EU/dL (0.2)
[2021-02-01 15:19] LABS: BACTERIA,URINE 2+ /HPF (None Seen); MUCUS,URINE Few /LPF (None Seen); SQUAMOUS EPITHELIAL CELL,UR Few /HPF (None Seen); URINE AMORPHOUS URATE Few /HPF (None Seen)
[2021-02-01] MEDS ORDERED: INSULIN REGULAR, HUMAN 100 UNIT/ML 10 ML VIAL ONE (15:28)
[2021-02-01] MEDS ORDERED: INSULIN REGULAR, HUMAN 100 UNIT/ML 10 ML VIAL SQ ONE (15:30)
[2021-02-01] MEDS ORDERED: ENOXAPARIN SODIUM 60 MG/0.6 ML DISP.SYRIN SQ ONE ×2 (16:00→16:02)
[2021-02-01] MEDS ORDERED: CEFTRIAXONE 1 G in IV D5W 50 ML IV ONE (16:00)
[2021-02-01] MEDS ORDERED: ASPIRIN 81 MG TAB.CHEW PO ONE (16:00)
[2021-02-01] MEDS ORDERED: CEFTRIAXONE 1GM BAG (ER ONLY) 50 ML IV ONE (16:02)
[2021-02-01] MEDS ORDERED: ASPIRIN 81 MG TAB.CHEW ONE (16:02)
--- NOTE | 2021-02-01 16:27 | NUR ---
PATIENT RESTING, NO DISTRESS NOTED, GIVEN BLANKETS FOR COMFORT. PATIENT IS A/OX4, VERBALLY RESPONSIVE. VSS.
[2021-02-01] MEDS ORDERED: IV NS 0.9% 1,000 ML IV PRN (16:30)
--- NOTE | 2021-02-01 16:39 | NUR ---
NEPTALI 18G MIDLINE INSERTED BY PICC NURSE
--- NOTE | 2021-02-01 17:23 | NUR ---
NURSING SUP GAVE 103.
[2021-02-01] MEDS ORDERED: MAGNESIUM HYDROXIDE 30 ML UDC PO PRN (17:30)
[2021-02-01] MEDS ORDERED: DIAZEPAM 5 MG TABLET PO PRN (17:30)
[2021-02-01] MEDS ORDERED: BENZONATATE 100 MG CAPSULE PO PRN (17:30)
[2021-02-01] MEDS ORDERED: BISACODYL SUPP (10 MG) 10 MG/SUPP.RECT SUPP.RECT RC PRN (17:30)
--- NOTE | 2021-02-01 17:51 | NUR ---
REPORT GIVEN TO HEDY ALEX FOR ANGELINA.
--- NOTE | 2021-02-01 18:55 | NUR ---
PATIENT TRANSFERRED TO ROOM 103 VIA ACLS PROTOCOL. NO DISTRESS NOTED. ENDORSED TO HEDY ALEX.
--- NOTE | 2021-02-01 19:14 | NUR ---
PATIENT RECEIVED AT 6:45 PM FOR ER. VITAL SIGNS TAKEN. PATIENT PLACED ON O2 THERAPY VIA NC AT 2 LPM FOR COMFORT. WILL ENDORSE CONTINUATION OF ADMISSIONS TO UPCOMING SHIFT.
--- NOTE | 2021-02-01 19:46 | NUR ---
HARDWOOD FLOOR LAYER OPENING NOTES PATIENT IN BED, AAX4; ABLE TO MAKE NEEDS KNOWN. ON O2 2LPM VIA N/C; WHEEZING AND COUGHING NOTED. EXTERNAL TILE SHADER READS NSR AT 100. IV TO L ARM #20G, L WRIST #20G, NEPTALI MIDLINE; PATENT AND INTACT. SAFETY MEASURES IN PLACE: BED IN LOWEST LOCKED POSITION, SIDERAILS UPX2; CALL LIGHT WITHIN REACH, BED ALARMS ON. WILL CONTINUE PLAN OF CARE.
[2021-02-01 20:00] VITALS: BP 106/47
[2021-02-01] MEDS: IV 1/2NS 1000 ML 1,000 ML IV PRN (20:23)
[2021-02-01] MEDS: ACETAMINOPHEN 325 MG TABLET PO PRN (20:23)
--- NOTE | 2021-02-01 20:23 | NUR ---
TANDEM MILL OPERATOR NOTES - HEADACHE PATIENT C/O HEADACHE AND FACIAL GRIMACE DURING ADLS. ADMINISTERED TYLENOL ORDERED. VITAL SIGNS WNL FOR PATIENT.
--- NOTE | 2021-02-01 20:56 | NUR ---
COOK SPECIALTY NOTES - LACTIC ACID RECEIVED CALL FROM LAB RONEL WELSH; REPORTED FOR LACTIC ACID RESULT IS 2.3. LACTIC ACID IS TRENDING DOWN. PREVIOUS RESULT WAS 4.1. CHARGE NURSE DONNY DAO.
--- NOTE | 2021-02-01 21:55 | NUR ---
TECHNOLOGIST INFECTIOUS DISEASE NOTES - TROPONIN RECIEVED CALL FROM LAB: CAMILA KAUR REPORTED PATIENT'S TROPONIN IS 1.101. REPORTED DR. ADAM (ON-CALL) WITH NO NEW ORDERS. CHARGE NURSE DONNY AWARE. PATIENT DENIES CHEST PAIN.
[2021-02-01] MEDS ORDERED: INSULIN GLARGINE, 100 UNIT/ML CARTRIDGE SQ SCH (22:00)
[2021-02-01] MEDS: ATORVASTATIN 10 MG TABLET PO SCH (22:22)
[2021-02-01] MEDS: QUETIAPINE FUMARATE 25 MG TABLET PO SCH (22:22)
--- NOTE | 2021-02-01 23:00 | NUR ---
AIR CARRIER INSPECTOR NOTE - BS PATIENT NOTED WITH BS OF 89. HELD LANTUS AND WILL REASSESS BS IN THE MORNING. PATIENT SHOWS NO S/S OF HYPOGLYCEMIA. SKIN DRY AND WARM TO TOUCH.
[2021-02-02] VITALS (13 sets, daily range): BP systolic 83–152; BP diastolic 26–93
[2021-02-02] MEDS: ACETAMINOPHEN 325 MG TABLET PO PRN (04:37)
--- NOTE | 2021-02-02 04:40 | NUR ---
CROWN BLOCKER NOTES - PAIN PATIENT C/O ABD PAIN. ADMINISTERED TYLENOL ORDERED. WILL CONTINUE TO ASSESS FOR PAIN.
[2021-02-02] MEDS: ONDANSETRON HCL/PF 4 MG/2 ML VIAL IV PRN (05:57)
--- NOTE | 2021-02-02 05:57 | NUR ---
FISHER TERRAPIN NOTES - EMESIS PATIENT NOTED WITH NAUSEA AND CLEAR EMESIS X1. DR ADAM ORDERED FOR ZOFRAN 4MG IV Q4H PRN. ADMINISTERED ZOFRAN ORDERED AND WILL CONTINUE TO MONITOR.
[2021-02-02 06:12] LABS: BASOPHILS % (AUTO) 0.2 % (0.0-2.0); EOSINOPHILS % (AUTO) 0.1 % (0.0-6.0); HEMATOCRIT 33 % (33-45); HEMOGLOBIN 10.9 g/dL (11.5-14.8); LYMPHOCYTES # (AUTO) 3.1 /CMM (0.8-4.8); MEAN CORPUSCULAR HGB CONC 33 g/dl (31.0-36.0); MEAN CORPUSCULAR VOLUME 101 fL (82-100); MONOCYTES # (AUTO) 0.6 /CMM (0.1-1.30); MONOCYTES % (AUTO) 4.9 % (2.0-12.0); NEUTROPHILS # (AUTO) 8.7 /CMM (1.8-8.9); NEUTROPHILS % (AUTO) 69.8 % (43.0-81.0); PLATELET COUNT (AUTO) 233 /CMM (150-450); RED BLOOD CELL COUNT(AUTO) 3.32 MIL/uL (4.0-5.2); WHITE BLOOD COUNT (AUTO) 12.5 K/uL (4.3-11.0)
[2021-02-02] MEDS: IV 1/2NS 1000 ML 1,000 ML IV PRN (06:27)
[2021-02-02 06:50] LABS: ALBUMIN 2.2 g/dL (3.4-5.0); BILIRUBIN,TOTAL 0.5 mg/dL (0.2-1.0); CALCIUM, SERUM 8.8 mg/dL (8.5-10.1); CREATININE 1.2 mg/dL (0.6-1.3); MAGNESIUM 1.5 mg/dL (1.8-2.4); PHOSPHORUS 3.1 mg/dL (2.5-4.9); POTASSIUM 4.1 mmol/L (3.5-5.1); TOTAL PROTEIN, SERUM 5.8 g/dL (6.4-8.2)
[2021-02-02 06:51] LABS: THYROID STIMULATING HORMONE 0.191 uIU/mL (0.358-3.74)
[2021-02-02] MEDS ORDERED: MORPHINE SULFATE INJ 4 MG/ML DISP.SYRIN IV PRN (07:00)
--- NOTE | 2021-02-02 07:00 | NUR ---
DIRECTOR MOBILE NOTES - PAIN PATIENT C/O 08/[address] ADAM ORDERED FOR MORPHINE 4MG IV Q4HR PRN. ADMINISTERED MORPHINE ORDERED WILL CONTINUE TO MONITOR.
--- NOTE | 2021-02-02 07:30 | NUR ---
RN OPENING NOTE PT LAYING IN BED SEMIFOWERS ON NC 2LPM, NO SIGNS OF RESP DISTRESS OR SOB, SPO2 98%. AUDIBLE WHEEZING HEARD, UPON AUSCULTATION LUNGS CLEAR, TRACHEAL WHEEZING. PT A/Ox2 AND LETHARGIC, TELE MONITOR ST 100-110. PT IS CONTINENT, USES BEDPAN. PT HAS LT HEEL REDNESS/DTI. PT IV ACCESS LFA #20 SL, LT WRIST #20 SL, AND NEPTALI MIDLINE RUNNING 1/2NS @ 125ML/HR; ALL LINES FLUSHED, PATENT, AND INTACT WITH NO SIGNS OF INFILTRATION/INFECTION. PT BLOOD GLUCOSE PER LAB OF 511, ACCUCHECK READS 549. WILL INFORM DR. JENSEN IMMEDIATELY. PER RAILROAD SHOP INSPECTOR RN FRANCINE HELD AT 2200 FOR BG OF 89. ALL PT SAFETY PRECAUTIONS IN PLACE, WILL CONT TO MONITOR AND ACT ACCORDINGLY REGARDING HYPERGLYCEMIA
--- NOTE | 2021-02-02 08:09 | NUR ---
MANAGER BOOK CLOSING NOTES PATIENT IN BED, A/O X3; ABLE TO MAKE NEEDS KNOWN. ON O2 2LPM VIA N/C; WHEEZING AND COUGHING NOTED. EXTERNAL FUNCTIONAL MENTAL DISABILITY TEACHER READS SINUS TACHY AT 110. IV TO L ARM #20G, L WRIST #20G, PATENT AND INTACT. NEPTALI MIDLINE INFUSING 1/2 NS @ 125ML/HR; PATENT AND INTACT. SAFETY MEASURES IN PLACE: BED IN LOWEST LOCKED POSITION, SIDERAILS UPX2; CALL LIGHT WITHIN REACH, BED ALARMS ON. WILL ENDORSE PLAN OF CARE TO ONCOMING MORNING RN.
--- NOTE | 2021-02-02 08:15 | NUR ---
RN NOTE PER DR JENSEN, MODERATE SLIDING SCALE, 15UNITS INSULIN TO BE GIVEN. WILL INFORM DR JENSEN OF FOLLOWING BG AT NOON. LANTUS 14UNIT ALSO TO BE GIVEN
[2021-02-02] MEDS ORDERED: *INSULIN REGULAR(HUMULIN R)HUM 100 UNIT/ML VIAL SQ PRN (08:30)
[2021-02-02] MEDS ORDERED: DEXTROSE 50%-WATER 50 ML DISP.SYRIN IV PRN (08:30)
[2021-02-02] MEDS ORDERED: Potassium Chloride 10 MEQ in IV NS 0.9% 1,000 ML IV PRN (09:00)
[2021-02-02] MEDS ORDERED: INSULIN GLARGINE, 100 UNIT/ML CARTRIDGE SQ SCH ×3 (09:00→09:30)
[2021-02-02] MEDS: MAGNESIUM CHLORIDE 64 MG TABLET.SA PO SCH (09:00)
[2021-02-02] MEDS ORDERED: PROSTAT (PYXIS) 30 ML UDC PO SCH (09:00)
--- NOTE | 2021-02-02 09:00 | NUR ---
RN NOTE NS BOLUS 500CC GIVEN TO PT PER DR JENSEN
[2021-02-02] MEDS: BLOOD SUGAR DIAGNOSTIC 1 EACH STRIP VI SCH ×4 (09:01→12:00)
[2021-02-02] MEDS: INSULIN REGULAR, HUMAN 100 UNIT/ML 3 ML VIAL SQ PRN ×2 (09:18→13:31)
[2021-02-02] MEDS ORDERED: Potassium Chloride 10 MEQ in IV NS 0.9% 1,000 ML IV SCH (09:59)
[2021-02-02] MEDS ORDERED: CARVEDILOL 6.25 MG TABLET PO SCH (10:00)
[2021-02-02] MEDS: Z GUARD REMEDY 2 OZ OINT TP SCH (10:00)
[2021-02-02] MEDS ORDERED: Z GUARD REMEDY 2 OZ OINT TP PRN (10:00)
--- NOTE | 2021-02-02 10:00 | NUR ---
WOUND CARE CONSULT: REVIEWED CHART, NURSING DOCUMENTATION AND PHOTO WHICH INDICATES HEEL ULCER, PRESENT ON ADMISSION. RECOMMEND DPM CONSULT. DR SILVESTRE NOTIFIED OF CONSULT REQUEST. RECOMMENDATIONS MADE FOR SKIN PROTECTION. DISCUSSED WITH NURSING STAFF. MD IN AGREEMENT WITH PLAN OF CARE.
[2021-02-02] MEDS: Magnesium 1GM/D5W 100ML PREMIX 100 ML IV SCH ×2 (10:30→10:54)
[2021-02-02] MEDS: QUETIAPINE FUMARATE 25 MG TABLET PO SCH ×2 (10:52→22:13)
[2021-02-02] MEDS: PANTOPRAZOLE 40 MG TABLET.DR PO SCH (10:53)
[2021-02-02] MEDS: ASCORBIC ACID 500 MG TABLET PO SCH (10:53)
[2021-02-02] MEDS: ASPIRIN EC 81 MG TABLET.DR PO SCH (10:53)
[2021-02-02] MEDS: LEVOTHYROXINE SODIUM 100 MCG TABLET PO SCH (10:53)
[2021-02-02] MEDS: MULTIVIT W/MINERALS 1 TAB TABLET PO SCH (10:53)
[2021-02-02] MEDS: ZINC SULFATE 220 MG CAPSULE PO SCH (10:53)
[2021-02-02] MEDS: Potassium Chloride 10 MEQ in IV NS 0.9% 1,000 ML IV SCH ×2 (11:08→19:55)
--- NOTE | 2021-02-02 12:15 | NUR ---
RN NOTE INFORMED DR JENSEN OF 414 BG, WILL ADMIN INSULIN PER SLIDING SCALE
--- NOTE | 2021-02-02 13:30 | NUR ---
follow up with lab reslut of bmp draw,per lab still pending.
[2021-02-02 13:59] LABS: CALCIUM, SERUM 8.3 mg/dL (8.5-10.1); CREATININE 1.8 mg/dL (0.6-1.3); POTASSIUM 4.1 mmol/L (3.5-5.1)
--- NOTE | 2021-02-02 14:40 | NUR ---
nursing chemical plant operator supervisor made aware unable to obtain lab results ,per lab have problem transmitting result to [facility],
--- NOTE | 2021-02-02 14:50 | NUR ---
finally obtained lab results and relayed to dr. polk gave orders to start on insulin drip and transfer to icu.
--- NOTE | 2021-02-02 15:00 | NUR ---
RN NOTE PT TRANSFERRED TO ICU, REPORT GIVEN TO ABI ARROYO FOR ANGELINA
[2021-02-02] MEDS ORDERED: Magnesium 1GM/D5W 100ML PREMIX PIGGYBACK IV ONE (16:00)
--- NOTE | 2021-02-02 16:12 | NUR ---
PT ARRIVED IN ICU AT 1500 FROM ROOM 103. REPORT RECEIVED FROM MARY ALEX. DKA FORM FAXED TO PHARMACY, AWAITING INSULIN GTT FROM PHARMACY. PER REPORT PT RECEIVED 1 GM MAG THIS AM, 2GM ORDERED, PER RN THERE WASN'T ENOUGH SUPPLY IN THEIR OMNICELL. 2ND GM OF MAG WILL BE GIVEN NOW. PT MADE NPO EXCEPT MEDS FOR DKA INSULIN GTT, PT INFORMED, STATES UNDERSTANDING. RN SPOKE TO REP AT [facility], PT WAS COVID NEGATIVE BY PCR TEST SINCE ADMISSION TO THEIR FACILITY ON 01/20/21. PT ALSO RECEIVED MODERNA VACCINE #1 ON Sunday01/28/21. PENDING PCR HERE SENT YESTERDAY, NO RAPID DONE IN ER.
[2021-02-02] MEDS: INSULIN REGULAR, HUMAN 100 UNIT in IV NS 0.9% 99 ML IV PRN ×2 (17:19→20:38)
[2021-02-02] MEDS: BLOOD SUGAR DIAGNOSTIC 1 EACH STRIP IN SCH ×7 (17:27→23:03)
[2021-02-02] MEDS: CEFTRIAXONE 1 G in IV D5W 50 ML IV SCH (17:27)
--- NOTE | 2021-02-02 18:53 | NUR ---
END OF SHIFT NOTE: INSULIN GTT STARTED AT 1716. Q4H BMP ORDER PUT IN NEXT BMP IS AT 2100. PT ALERT OX4, COOPERATIVE, ABLE TO MOVE IN BED INDEPENDENTLY WITH ENCOURAGEMENT. PT CHECKED ON HOURLY AND PRN BY NURSING STAFF.
--- NOTE | 2021-02-02 19:49 | NUR ---
RN NOTE PATIENT A/OX4, ABLE TO MAKE NEEDS KNOWN. NO SOB OR ANY RESPIRATORY DISTRESS. DENIES ANY PAIN AT THIS TIME. WITH IV ACCESS LFA#20, NEPTALI MIDLINE AND LEFT WRIST #20SL. PATENT AND INTACT. FLUIDS NS KCL 10MEQ @ 150ML/HR AND INSULIN GGT RUNNING. NO S/S OF ANY INFILTRATION. ALL NEEDS ANTICIPATED. CALL LIGHT WITHIN REACH. BED LOCKED AND IN LOWEST POSITION. WILL CONTINUE TO MONITOR.
[2021-02-02 21:53] LABS: CALCIUM, SERUM 7.9 mg/dL (8.5-10.1); CREATININE 1.4 mg/dL (0.6-1.3); POTASSIUM 3.7 mmol/L (3.5-5.1)
[2021-02-02] MEDS: ATORVASTATIN 10 MG TABLET PO SCH (22:11)
--- NOTE | 2021-02-02 23:37 | NUR ---
SPOKE WITH DR. JENSEN AND NOTIFIED OF PATIENTS BLOOD SUGAR 135 @ 2300 AND LATEST BMP LAB WITH NEW ORDERS TO GIVE LANTUS 10 UNITS NOW, STOP INSULIN DRIP IN TWO HOURS AND START ON MODERATE ACHS SLIDING SCALE IN AM NOTED AND CARRIED OUT.
[2021-02-03] VITALS (15 sets, daily range): BP systolic 93–145; BP diastolic 47–73
[2021-02-03] MEDS ORDERED: INSULIN REGULAR, HUMAN 100 UNIT/ML 3 ML VIAL SQ PRN
[2021-02-03] MEDS ORDERED: DEXTROSE 50%-WATER 50 ML DISP.SYRIN IV PRN
[2021-02-03] MEDS ORDERED: *INSULIN REGULAR(HUMULIN R)HUM 100 UNIT/ML VIAL SQ PRN
[2021-02-03] MEDS ORDERED: INSULIN GLARGINE, 100 UNIT/ML CARTRIDGE SQ ONE (00:29)
[2021-02-03] MEDS: Potassium Chloride 10 MEQ in IV NS 0.9% 1,000 ML IV SCH ×3 (03:00→12:48)
--- NOTE | 2021-02-03 03:53 | NUR ---
NOTIFIED DR. CAMILA MCDONOUGH PATIENT NOTED WITH 280 URINE OUTPUT UP TO THIS TIME, BLADDER SCAN 216, UPPER EXTREMITIES IS VERY SWOLLEN, AND DIFFICULTY BREATHING. PATIENT COULD NOT TOLERATE HEAD OF BED IN FLAT POSITION DURING ADL'S. STILL CONTINUES ON IV NS KCL 10 MEQ @ 150ML/HR. MD AWARE WITH NO NEW ORDERS. DR. JENSEN SAID OKAY TO PUT PATIENT BACK TO [facility] DIET. NOTED AND CARRIED OUT. WILL CONTINUE TO MONITOR.
[2021-02-03 05:11] LABS: BASOPHILS % (AUTO) 0.5 % (0.0-2.0); EOSINOPHILS % (AUTO) 0.5 % (0.0-6.0); HEMATOCRIT 30 % (33-45); HEMOGLOBIN 10.1 g/dL (11.5-14.8); LYMPHOCYTES # (AUTO) 2.2 /CMM (0.8-4.8); LYMPHOCYTES % (AUTO) 31.9 % (20.0-44.0); MEAN CORPUSCULAR HGB CONC 33 g/dl (31.0-36.0); MEAN CORPUSCULAR VOLUME 98 fL (82-100); MONOCYTES # (AUTO) 0.5 /CMM (0.1-1.30); NEUTROPHILS % (AUTO) 59.1 % (43.0-81.0); PLATELET COUNT (AUTO) 226 /CMM (150-450); RED BLOOD CELL COUNT(AUTO) 3.09 MIL/uL (4.0-5.2); WHITE BLOOD COUNT (AUTO) 6.8 K/uL (4.3-11.0)
[2021-02-03] MEDS: ONDANSETRON HCL/PF 4 MG/2 ML VIAL IV PRN ×2 (05:18→06:34)
[2021-02-03] MEDS: HYDROCODONE/APAP 5/325MG TABLET PO PRN ×2 (05:25→20:30)
[2021-02-03 06:33] LABS: CALCIUM, SERUM 8.6 mg/dL (8.5-10.1); MAGNESIUM 2.1 mg/dL (1.8-2.4); POTASSIUM 3.4 mmol/L (3.5-5.1)
--- NOTE | 2021-02-03 07:02 | NUR ---
RN NOTE PATIENT A/OX4, ABLE TO MAKE NEEDS KNOWN. NO SOB OR ANY RESPIRATORY DISTRESS. DENIES ANY PAIN AT THIS TIME, NORCO 5/325 MG EFFECTIVE. WITH IV ACCESS LFA#20, NEPTALI MIDLINE AND LEFT WRIST #20SL. PATENT AND INTACT. FLUIDS NS KCL 10MEQ @ 150ML/HR. NO S/S OF ANY INFILTRATION. VOIDED X3 IN BEDPAN. CALL LIGHT WITHIN REACH. BED LOCKED AND IN LOWEST POSITION. ENDORSED TO AM SHIFT.
--- NOTE | 2021-02-03 07:10 | NUR ---
RN INITIAL NOTES RECEIVED PT ASLEEP, EASY TO AROUSE. ON 02 VIA NC AT 2LPM. HOB ELEVATED. NO SIGNS OF PAIN NOTED. IVF INFUSING. PT COMFORTABLE. CALL LIGHT WITHIN REACH. WILL MONITOR
[2021-02-03] MEDS ORDERED: BLOOD SUGAR DIAGNOSTIC 1 EACH STRIP IN SCH (07:30)
[2021-02-03] MEDS: BLOOD SUGAR DIAGNOSTIC 1 EACH STRIP VI SCH ×4 (07:36→21:48)
[2021-02-03] MEDS: PANTOPRAZOLE 40 MG TABLET.DR PO SCH ×2 (07:49→10:19)
[2021-02-03] MEDS: LEVOTHYROXINE SODIUM 100 MCG TABLET PO SCH (07:49)
[2021-02-03] MEDS: MULTIVIT W/MINERALS 1 TAB TABLET PO SCH (08:09)
[2021-02-03] MEDS: QUETIAPINE FUMARATE 25 MG TABLET PO SCH ×2 (08:09→21:48)
[2021-02-03] MEDS: ASCORBIC ACID 500 MG TABLET PO SCH (08:09)
[2021-02-03] MEDS: MAGNESIUM CHLORIDE 64 MG TABLET.SA PO SCH (08:09)
[2021-02-03] MEDS: ASPIRIN EC 81 MG TABLET.DR PO SCH (08:09)
[2021-02-03] MEDS: ZINC SULFATE 220 MG CAPSULE PO SCH (08:09)
[2021-02-03] MEDS: PROSOURCE / PROSTAT (PYXIS) 30 ML UDC PO SCH (08:10)
[2021-02-03] MEDS: Z GUARD REMEDY 2 OZ OINT TP SCH (08:10)
[2021-02-03] MEDS ORDERED: INSULIN GLARGINE, 100 UNIT/ML CARTRIDGE SQ SCH ×2 (09:30)
[2021-02-03] MEDS ORDERED: POTASSIUM CHLORIDE 20 MEQ TAB.PRT.SR PO ONE (09:30)
[2021-02-03] MEDS: INSULIN GLARGINE, 100 UNIT/ML CARTRIDGE SQ SCH ×2 (10:31→16:48)
--- NOTE | 2021-02-03 11:57 | NUR ---
MS RN NOTE RECEIVED PATIENT FROM ICU , ALERT , ORIENTED, ON 2L NC WITH SLIGHT SOB NOTED AND COUGH NOTED, LT UPPER ARM MID LINE ON IVF ORDERED, BED IN LOWEST AND LOCKED POSITION, CALL LIGHT WITHIN REACH. WILL CONT TO MONITOR, VS TAKEN
--- NOTE | 2021-02-03 11:59 | NUR ---
RN NOTES [address] JENSEN. AWARE OF PT'S CURRENT STATUS AND LAB RESULT. ORDERED TO DOWNGRADE PT TO MEDSURG. 1157 PT TRANSFERRED TO ROOM 107. PT A/O, ON 02 VIA ID. HOB ELEVATED. NO RESPIRATORY DISTRESS NOTED. NO SIGNS OF PAIN NOTED. PT STABLE. ABI CARPIO TOOK OVER PT'S CARE.
[2021-02-03] MEDS: ALBUTEROL FS 2.5 MG/3 ML VIAL.NEB IH PRN ×2 (12:25→18:40)
--- NOTE | 2021-02-03 12:31 | NUR ---
ms rn note c\o cough and sob , on breathing tx and Tessalon for cough given
--- NOTE | 2021-02-03 13:07 | NUR ---
MS RN NOTE NS WITH KCL IVF GIVEN AT 1200
--- NOTE | 2021-02-03 14:20 | NUR ---
ms rn note called to dr polk notified that patient with chest congestion and wheezing upon ausultation, notified abour am chest xay and ivf at 150 ml perhour , ordered decrease ivf to 75 ml per hour , order carried out
[2021-02-03] MEDS: CEFTRIAXONE 1 G in IV D5W 50 ML IV SCH (15:00)
--- NOTE | 2021-02-03 16:48 | NUR ---
ms rn note blood sugar 52 mg\dl d50% given iv per hospital protocol , will f\u
--- NOTE | 2021-02-03 17:17 | NUR ---
ms rn note after d50% was given blood sugar 126 mg\dl ,will cont to monitor
--- NOTE | 2021-02-03 18:40 | NUR ---
ms rn note c\o sob and with severe wheezing ,called rt and to do breathing tx will f\u
--- NOTE | 2021-02-03 18:53 | NUR ---
ENDOCRINOLOGIST NOTE CALLED TO DR JENSEN NOTIFIED THAT HAS SEVERE CHEST CONGESTION AND WHEEZING ORDERED START ON ZOSYN AND D\C ROCEPHIN AND OK BREATHING TX Q6 HOUR ,WILL F\U
[2021-02-03] MEDS: PIPERACILLIN /TAZOBACTAM 3.375 G in IV D5W 50 ML IV SCH ×2 (19:14→23:59)
--- NOTE | 2021-02-03 19:29 | NUR ---
RN NOTE PATIENT A/OX4, ABLE TO MAKE NEEDS KNOWN. ON O2 2LPM VIA NC, O2 SAT WNL. NOTED WITH CONGESTION. DENIES ANY PAIN AT THIS TIME. WITH IV ACCESS LFA#20, NEPTALI MIDLINE PATENT AND INTACT. FLUIDS NS KCL 10MEQ @ 75ML/HR. NO S/S OF ANY INFILTRATION. CALL LIGHT WITHIN REACH. BED LOCKED AND IN LOWEST POSITION. WILL CONTINUE TO MONITOR.
[2021-02-03] MEDS: ALBUTEROL FS 2.5 MG/3 ML VIAL.NEB NEB SCH (19:55)
[2021-02-03] MEDS: ATORVASTATIN 10 MG TABLET PO SCH (21:48)
[2021-02-04] MEDS: Potassium Chloride 10 MEQ in IV NS 0.9% 1,000 ML IV SCH ×2 (00:43→14:09)
[2021-02-04 04:00] VITALS: BP 113/62
[2021-02-04] MEDS: PIPERACILLIN /TAZOBACTAM 3.375 G in IV D5W 50 ML IV SCH ×2 (05:11→12:36)
--- NOTE | 2021-02-04 06:47 | NUR ---
RN NOTE PATIENT A/OX4, ABLE TO MAKE NEEDS KNOWN. ON O2 2LPM VIA NC, O2 SAT WNL. DENIES ANY PAIN AT THIS TIME. WITH IV ACCESS LFA#20, NEPTALI MIDLINE PATENT AND INTACT. FLUIDS NS KCL 10MEQ @ 75ML/HR. NO S/S OF ANY INFILTRATION. VOIDED X3. NO SIGNIFICANT CHANGES. ALL NEEDS ATTENDED PROMPTLY. CALL LIGHT WITHIN REACH. BED LOCKED AND IN LOWEST POSITION. WILL ENDORSE TO AM SHIFT.
[2021-02-04 07:13] LABS: CALCIUM, SERUM 8.4 mg/dL (8.5-10.1); CREATININE 0.8 mg/dL (0.6-1.3); POTASSIUM 3.9 mmol/L (3.5-5.1)
[2021-02-04] MEDS: PANTOPRAZOLE 40 MG TABLET.DR PO SCH ×2 (07:30→08:09)
[2021-02-04] MEDS: ALBUTEROL FS 2.5 MG/3 ML VIAL.NEB NEB SCH ×2 (07:34→13:44)
--- NOTE | 2021-02-04 07:35 | NUR ---
MS RN OPENING NOTE RECEIVED PATIENT IN BED, AWAKE, A/OX4, ABLE TO MAKE NEEDS KNOWN. ON OXYGEN THERAPY AT 2LPM VIA NC, O2 SAT WNL. DENIES ANY PAIN AT THIS TIME. IV ACCESS LFA#20, NEPTALI MIDLINE PATENT AND INTACT. FLUIDS NS KCL 10MEQ @ 75ML/HR. SAFETY PRECAUTIONS IN PLACE; BED IN LOW POSITION, RAILS UP X2, CALL LIGHT WITHIN REACH. WILL CONTINUE TO MONITOR PATIENT.
[2021-02-04] MEDS: BLOOD SUGAR DIAGNOSTIC 1 EACH STRIP VI SCH ×2 (07:57→12:29)
[2021-02-04] MEDS: ZINC SULFATE 220 MG CAPSULE PO SCH (08:08)
[2021-02-04] MEDS: ASCORBIC ACID 500 MG TABLET PO SCH (08:09)
[2021-02-04] MEDS: LEVOTHYROXINE SODIUM 100 MCG TABLET PO SCH (08:09)
[2021-02-04] MEDS: ASPIRIN EC 81 MG TABLET.DR PO SCH (08:09)
[2021-02-04] MEDS: MULTIVIT W/MINERALS 1 TAB TABLET PO SCH (08:09)
[2021-02-04] MEDS: PROSOURCE / PROSTAT (PYXIS) 30 ML UDC PO SCH (08:10)
[2021-02-04] MEDS: QUETIAPINE FUMARATE 25 MG TABLET PO SCH (08:10)
[2021-02-04] MEDS: Z GUARD REMEDY 2 OZ OINT TP SCH (08:10)
[2021-02-04] MEDS: MAGNESIUM CHLORIDE 64 MG TABLET.SA PO SCH (08:11)
[2021-02-04] MEDS: INSULIN GLARGINE, 100 UNIT/ML CARTRIDGE SQ SCH (08:37)
--- NOTE | 2021-02-04 08:37 | NUR ---
MS RN NOTES PATIENT WITH POOR PO INTAKE 10% FOR BREAKFAST. INSULIN LANTUS NON-ADMINISTERED.
[2021-02-04] MEDS ORDERED: AMOX-430 PO (08:48)
[2021-02-04] MEDS ORDERED: INSULIN GLARGINE, 100 UNIT/ML CARTRIDGE SQ SCH (09:00)
[2021-02-04] MEDS ORDERED: NITROGLYCERIN 0.4 MG/TAB BOTTLE SL ONE ×2 (10:00→11:30)
--- NOTE | 2021-02-04 10:42 | NUR ---
MS RN NOTES 1040 AM VITALS BP144/76 HR 91
[2021-02-04] MEDS: METOPROLOL TARTRATE INJ 5 MG/5 ML AMPUL IVP PRN ×9 (11:17→11:56)
[2021-02-04] MEDS ORDERED: METOPROLOL TARTRATE INJ 5 MG/5 ML AMPUL ONE ×4 (11:25→11:53)
[2021-02-04] MEDS ORDERED: CT SWABBABLE VALVE TRANS SET 1 EA INFUS.SET MC ONE (11:30)
[2021-02-04] MEDS ORDERED: NITROGLYCERIN 0.4 MG/TAB BOTTLE ONE (11:30)
[2021-02-04] MEDS ORDERED: METOPROLOL TARTRATE INJ 5 MG/5 ML AMPUL IVP PRN (11:30)
[2021-02-04] MEDS ORDERED: IV NS 0.9% 250 ML IV ONE (11:31)
[2021-02-04] MEDS ORDERED: IOHEXOL-350 100 ML VIAL IV ONE (11:31)
--- NOTE | 2021-02-04 12:02 | NUR ---
CTA: Post CTA patient able to tolerate the procedure, and no distress noted at this time.
[2021-02-04 16:01] VITALS: BP 144/76
--- NOTE | 2021-02-04 16:46 | NUR ---
MS CREATIVE SERVICES WRITER NOTES PATIENT DISCHARGED TO SNF IN MEDICALLY STABLE CONDITION. PATIENT A/O X3 AND ABLE TO MAKE NEEDS KNOWN. ALL DISCHARGE DOCUMENTATION READY AND PROVIDED TO PATIENT FOR SIGNATURE. DISCHARGE TEACHING PROVIDED; PATIENT VERBALIZED UNDERSTANDING. PATIENT HAD NO BELONGINGS. PHOTO TAKEN AND FILED. FACILITY CALLED AND REPORT GIVEN TO RN. BEFORE PATIENT LEFT THE UNIT IV ACCESS HAS BEEN REMOVED. PATIENT LEFT THE FLOOR ACCOMPANIED BY 2 stage setting painter apprentice AT 1640.
== END 2021-02-04 16:45 | DRG 420 ==
LOC: ER 13:04 → TELE1 18:23 → ICU 02-02 14:52 → MEDSG1 02-03 11:51
PROVIDERS: ADMIT Internal Medicine; ATTEND Internal Medicine
PROC: 05H533Z Insertion of Infusion Device into Right Subclavian Vein, Percutaneous Approach (ICD-10-PCS; principal; 2021-02-01)
PROC: B546ZZA Ultrasonography of Right Subclavian Vein, Guidance (ICD-10-PCS; 2021-02-01)
DX: E11.10 Type 2 diabetes mellitus with ketoacidosis without coma (principal); N17.0 Acute kidney failure with tubular necrosis; I21.A1 Myocardial infarction type 2; N39.0 Urinary tract infection, site not specified; E03.9 Hypothyroidism, unspecified; E46 Unspecified protein-calorie malnutrition; E87.2 Acidosis; E83.42 Hypomagnesemia; I10 Essential (primary) hypertension; Z79.4 Long term (current) use of insulin; Z79.82 Long term (current) use of aspirin; E86.0 Dehydration; E87.6 Hypokalemia; Z20.822 Contact with and (suspected) exposure to COVID-19; F31.9 Bipolar disorder, unspecified; J44.9 Chronic obstructive pulmonary disease, unspecified; E88.09 Other disorders of plasma-protein metabolism, not elsewhere classified; Z68.26 Body mass index [BMI] 26.0-26.9, adult; L89.626 Pressure-induced deep tissue damage of left heel; F43.10 Post-traumatic stress disorder, unspecified; I25.10 Atherosclerotic heart disease of native coronary artery without angina pectoris
CPT/HCPCS: 36415; 36600; 70450-TC; 71045-TC; 75574; 80048-TC; 80053-TC; 80061-TC; 80076-TC; 81001; 82010-TC; 82962-TC; 83605-TC; 83735-TC; 84100-TC; 84443-TC; 84484-TC; 85025-TC; 87040-TC; 87081-TC; 87086-TC; 87186-TC; 93307-TC; 94799-TC; A6403; G0378; G0480; J0696; J1650; J1815; J2270; J2405; J2543; J3475; J3480; J3490; J7030; J7040; J7050; J7060; Q9967; U0003

== ENCOUNTER 2021-02-07 08:12 | Inpatient (IN) | payer OTHER ==
[2021-02-07] VITALS (35 sets, daily range): BP systolic 90–130; BP diastolic 37–78
[~2021-02-07] VITALS: Ht 152.4 cm; Wt 58.6 kg
[~2021-02-07 08:12] MED LIST changes: -*INS REG SQ; +ASCO-352 PO; -DIAZ5TAB4 PO; -ENOX40DI SQ; +INSU100V30 SQ; -Insulin Glargine,Hum SQ; -LEVO137T24 PO; +LEVO200T8 PO; -LISI20TA30 PO
[2021-02-07] MEDS ORDERED: IV NS 0.9% 1,000 ML BAG IV ONE (08:30)
[2021-02-07] MEDS ORDERED: ACET-2605 PO (08:41)
[2021-02-07] MEDS ORDERED: LEVO750T46 PO (08:41)
[2021-02-07] MEDS ORDERED: MENT113O6 TP (08:41)
[2021-02-07] MEDS ORDERED: ONDA4TAB5 PO (08:41)
[2021-02-07] MEDS ORDERED: PETR113O TP (08:41)
[2021-02-07] MEDS ORDERED: ASPI-1420 PO (08:41)
[2021-02-07 09:32] LABS: BASOPHILS % (AUTO) 0.2 % (0.0-2.0); HEMATOCRIT 38 % (33-45); LYMPHOCYTES # (AUTO) 0.5 /CMM (0.8-4.8); MEAN CORPUSCULAR HGB CONC 32 g/dl (31.0-36.0); MEAN CORPUSCULAR VOLUME 102 fL (82-100); MONOCYTES # (AUTO) 0.6 /CMM (0.1-1.30); MONOCYTES % (AUTO) 6.3 % (2.0-12.0); NEUTROPHILS # (AUTO) 8.9 /CMM (1.8-8.9); NEUTROPHILS % (AUTO) 88.5 % (43.0-81.0); PLATELET COUNT (AUTO) 230 /CMM (150-450); WHITE BLOOD COUNT (AUTO) 10.1 K/uL (4.3-11.0)
[2021-02-07 09:52] LABS: ALANINE AMINOTRANSFERASE 23 U/L (12-78); ALBUMIN 2.7 g/dL (3.4-5.0); ALKALINE PHOSPHATASE 149 U/L (46-116); ASPARTATE AMINOTRANSFERASE 19 U/L (15-37); BILIRUBIN,DIRECT 0.1 mg/dL (0.0-0.2); BILIRUBIN,TOTAL 0.5 mg/dL (0.2-1.0); CALCIUM, SERUM 9.6 mg/dL (8.5-10.1); CHLORIDE 101 mmol/L (98-107); CREATININE 1.6 mg/dL (0.6-1.3); POTASSIUM 4.3 mmol/L (3.5-5.1); SODIUM SERUM 140 mmol/L (136-145); TOTAL PROTEIN, SERUM 7.3 g/dL (6.4-8.2); UREA NITROGEN, BLOOD 32 mg/dL (7-18)
[2021-02-07 09:54] LABS: CARBON DIOXIDE 10 mmol/L (21-32); GLUCOSE 417 mg/dL (74-106)
[2021-02-07] MEDS ORDERED: IV PREMIX NS +20MEQ KCL 1,000 L IV PRN (10:00)
[2021-02-07 10:25] LABS: BILIRUBIN,URINE MODERATE (NEGATIVE); COLOR,URINE YELLOW (YELLOW); LEUKOCYTE ESTERASE ,URINE Negative (NEGATIVE); NITRITE, URINE Negative (NEGATIVE); PH,URINE 5.5 (5.0-8.0); PROTEIN,URINE 30 mg/dl (NEGATIVE); UGLUCOSE 500 MG/DL mg/dL (NEGATIVE); UROBILINOGEN,URINE 0.2 EU/dL (0.2)
[2021-02-07 10:30] LABS: BACTERIA,URINE Rare /HPF (None Seen)
[2021-02-07] MEDS: INSULIN REGULAR, HUMAN 100 UNIT in IV NS 0.9% 99 ML IV PRN (10:30)
[2021-02-07] MEDS: ONDANSETRON HCL/PF 4 MG/2 ML VIAL IV PRN ×2 (16:13→20:31)
[2021-02-07] MEDS: MORPHINE SULFATE INJ 2 MG/ML DISP.SYRIN IV PRN ×2 (16:13→20:31)
[2021-02-07 16:16] LABS: CALCIUM, SERUM 9.9 mg/dL (8.5-10.1); CREATININE 1.4 mg/dL (0.6-1.3); POTASSIUM 3.5 mmol/L (3.5-5.1)
[2021-02-07] MEDS ORDERED: BISACODYL SUPP (10 MG) 10 MG/SUPP.RECT SUPP.RECT RC PRN (17:30)
[2021-02-07] MEDS ORDERED: ACETAMINOPHEN 325 MG TABLET PO PRN (17:30)
[2021-02-07] MEDS ORDERED: BENZONATATE 100 MG CAPSULE PO PRN (17:30)
[2021-02-07] MEDS ORDERED: BLOOD SUGAR DIAGNOSTIC 1 EACH STRIP IN SCH (18:00)
[2021-02-07] MEDS ORDERED: DEXTROSE 50%-WATER 50 ML DISP.SYRIN IV PRN (18:00)
[2021-02-07] MEDS: ENOXAPARIN SODIUM 40 MG/0.4 ML DISP.SYRIN SQ SCH (18:08)
[2021-02-07] MEDS: IPRATROPIUM NEB FS 0.5 MG/2.5 ML AMPUL.NEB NEB SCH ×3 (18:08→23:20)
[2021-02-07] MEDS: Potassium Chloride 20 MEQ in IV D5/ 0.9% NACL 1,000 ML IV SCH (18:59)
[2021-02-07] MEDS ORDERED: IPRATROPIUM NEB FS 0.5 MG/2.5 ML AMPUL.NEB NEB SCH (19:30)
[2021-02-07] MEDS: ALBUTEROL FS 2.5 MG/0.5 ML VIAL.NEB NEB SCH ×2 (19:30→23:20)
[2021-02-07] MEDS ORDERED: BLOOD SUGAR DIAGNOSTIC 1 EACH STRIP IN ONE (20:00)
[2021-02-07] MEDS: BLOOD SUGAR DIAGNOSTIC 1 EACH STRIP IN SCH ×5 (20:10→23:05)
[2021-02-07] MEDS: SENNOSIDES 8.6 MG TABLET PO SCH (21:43)
[2021-02-07] MEDS: QUETIAPINE FUMARATE 25 MG TABLET PO SCH (21:43)
[2021-02-07] MEDS: FAMOTIDINE (20 MG) 20 MG TABLET PO SCH (21:44)
[2021-02-07 23:27] LABS: CALCIUM, SERUM 9.2 mg/dL (8.5-10.1); CREATININE 1.3 mg/dL (0.6-1.3); POTASSIUM 4.2 mmol/L (3.5-5.1)
[2021-02-08] VITALS (19 sets, daily range): BP systolic 83–137; BP diastolic 47–78
[2021-02-08] MEDS: Potassium Chloride 20 MEQ in IV D5/ 0.9% NACL 1,000 ML IV SCH ×2 (00:17→08:15)
[2021-02-08] MEDS: BLOOD SUGAR DIAGNOSTIC 1 EACH STRIP IN SCH ×14 (00:58→22:27)
[2021-02-08] MEDS: MORPHINE SULFATE INJ 2 MG/ML DISP.SYRIN IV PRN (01:35)
[2021-02-08] MEDS: IPRATROPIUM NEB FS 0.5 MG/2.5 ML AMPUL.NEB NEB SCH ×5 (02:54→20:19)
[2021-02-08] MEDS: ALBUTEROL FS 2.5 MG/0.5 ML VIAL.NEB NEB SCH ×5 (02:54→20:19)
[2021-02-08 04:32] LABS: CALCIUM, SERUM 8.7 mg/dL (8.5-10.1); CREATININE 1.3 mg/dL (0.6-1.3); POTASSIUM 4.1 mmol/L (3.5-5.1)
[2021-02-08] MEDS: QUETIAPINE FUMARATE 25 MG TABLET PO SCH ×2 (08:16→22:28)
[2021-02-08] MEDS: ASPIRIN EC 81 MG TABLET.DR PO SCH (08:16)
[2021-02-08] MEDS: FAMOTIDINE (20 MG) 20 MG TABLET PO SCH ×2 (08:16→22:28)
[2021-02-08] MEDS: ASCORBIC ACID 500 MG TABLET PO SCH (08:16)
[2021-02-08] MEDS: ZINC SULFATE 220 MG CAPSULE PO SCH (08:16)
[2021-02-08] MEDS: Z GUARD REMEDY 2 OZ OINT TP SCH (08:17)
[2021-02-08] MEDS: INSULIN REGULAR, HUMAN 100 UNIT in IV NS 0.9% 99 ML IV PRN (08:38)
[2021-02-08 08:45] LABS: CALCIUM, SERUM 9.3 mg/dL (8.5-10.1); CREATININE 1.2 mg/dL (0.6-1.3); POTASSIUM 4.2 mmol/L (3.5-5.1)
[2021-02-08] MEDS: IV 1/2NS 1000 ML 1,000 ML IV PRN ×2 (10:13→22:26)
[2021-02-08] MEDS: INSULIN GLARGINE, 100 UNIT/ML CARTRIDGE SQ SCH ×2 (11:58→22:31)
[2021-02-08] MEDS: INSULIN REGULAR, HUMAN 100 UNIT/ML 3 ML VIAL SQ PRN ×3 (11:59→22:33)
[2021-02-08] MEDS: SENNOSIDES 8.6 MG TABLET PO SCH (22:26)
[2021-02-08] MEDS: ENOXAPARIN SODIUM 40 MG/0.4 ML DISP.SYRIN SQ SCH (22:27)
[2021-02-09] VITALS: BP 117/59
[2021-02-09] MEDS: IPRATROPIUM NEB FS 0.5 MG/2.5 ML AMPUL.NEB NEB SCH ×6 (00:23→19:00)
[2021-02-09] MEDS: ALBUTEROL FS 2.5 MG/0.5 ML VIAL.NEB NEB SCH ×6 (00:23→19:00)
[2021-02-09] MEDS: MORPHINE SULFATE INJ 2 MG/ML DISP.SYRIN IV PRN ×3 (02:39→16:12)
[2021-02-09 04:00] VITALS: BP 117/62
[2021-02-09 06:48] LABS: BASOPHILS % (AUTO) 0.7 % (0.0-2.0); EOSINOPHILS % (AUTO) 3.9 % (0.0-6.0); HEMATOCRIT 30 % (33-45); LYMPHOCYTES # (AUTO) 2.5 /CMM (0.8-4.8); MEAN CORPUSCULAR HGB CONC 34 g/dl (31.0-36.0); MEAN CORPUSCULAR VOLUME 97 fL (82-100); MONOCYTES # (AUTO) 0.4 /CMM (0.1-1.30); MONOCYTES % (AUTO) 8.1 % (2.0-12.0); NEUTROPHILS # (AUTO) 1.7 /CMM (1.8-8.9); NEUTROPHILS % (AUTO) 35.3 % (43.0-81.0); PLATELET COUNT (AUTO) 195 /CMM (150-450); RED BLOOD CELL COUNT(AUTO) 3.05 MIL/uL (4.0-5.2); WHITE BLOOD COUNT (AUTO) 4.8 K/uL (4.3-11.0)
[2021-02-09] MEDS: BLOOD SUGAR DIAGNOSTIC 1 EACH STRIP IN SCH ×3 (07:19→18:30)
[2021-02-09 07:37] LABS: BILIRUBIN,DIRECT 0.1 mg/dL (0.0-0.2); BILIRUBIN,TOTAL 0.3 mg/dL (0.2-1.0); CALCIUM, SERUM 8.8 mg/dL (8.5-10.1); CREATININE 0.8 mg/dL (0.6-1.3); MAGNESIUM 1.4 mg/dL (1.8-2.4); PHOSPHORUS 2.6 mg/dL (2.5-4.9); TOTAL PROTEIN, SERUM 5.5 g/dL (6.4-8.2)
[2021-02-09 08:00] VITALS: BP 122/74
[2021-02-09] MEDS: QUETIAPINE FUMARATE 25 MG TABLET PO SCH (08:02)
[2021-02-09] MEDS: FAMOTIDINE (20 MG) 20 MG TABLET PO SCH (08:02)
[2021-02-09] MEDS: ASCORBIC ACID 500 MG TABLET PO SCH (08:02)
[2021-02-09] MEDS: ASPIRIN EC 81 MG TABLET.DR PO SCH (08:02)
[2021-02-09] MEDS: ZINC SULFATE 220 MG CAPSULE PO SCH (08:02)
[2021-02-09] MEDS: Z GUARD REMEDY 2 OZ OINT TP SCH (08:03)
[2021-02-09 08:40] LABS: THYROID STIMULATING HORMONE 0.108 uIU/mL (0.358-3.74)
[2021-02-09] MEDS: POTASSIUM CHLORIDE 20 MEQ TAB.PRT.SR PO SCH ×3 (08:49→11:30)
[2021-02-09] MEDS: Magnesium 1GM/D5W 100ML PREMIX 100 ML IV SCH ×2 (08:49→10:08)
[2021-02-09] MEDS ORDERED: Magnesium 1GM/D5W 100ML PREMIX 100 ML IV SCH (09:00)
[2021-02-09] MEDS ORDERED: CARVEDILOL 3.125 MG TABLET PO SCH (09:00)
[2021-02-09] MEDS ORDERED: ATORVASTATIN 10 MG TABLET PO SCH (09:00)
[2021-02-09] MEDS ORDERED: LOSARTAN POTASSIUM 50 MG TABLET PO SCH (09:00)
[2021-02-09] MEDS ORDERED: POTASSIUM CHLORIDE 20 MEQ TAB.PRT.SR PO ONE (09:00)
[2021-02-09] MEDS ORDERED: LEVO200T8 PO (09:48)
[2021-02-09] MEDS ORDERED: Insulin Glargine,Hum SQ (10:01)
[2021-02-09] MEDS ORDERED: GUAIFENESIN 300 MG/15 ML UDC PO PRN (15:00)
[2021-02-09 16:00] VITALS: BP 123/71
== END 2021-02-09 19:15 | DRG 420 ==
LOC: ER 08:25 → ICU 10:57 → MED 02-08 15:47 → TELE 02-08 16:49
PROVIDERS: ADMIT Internal Medicine; ATTEND Internal Medicine
PROC: 05HB33Z Insertion of Infusion Device into Right Basilic Vein, Percutaneous Approach (ICD-10-PCS; principal; 2021-02-08)
DX: E11.10 Type 2 diabetes mellitus with ketoacidosis without coma (principal); E86.0 Dehydration; E03.9 Hypothyroidism, unspecified; J44.9 Chronic obstructive pulmonary disease, unspecified; N17.9 Acute kidney failure, unspecified; I10 Essential (primary) hypertension; E46 Unspecified protein-calorie malnutrition; Z20.822 Contact with and (suspected) exposure to COVID-19; F20.9 Schizophrenia, unspecified; F31.9 Bipolar disorder, unspecified; I25.10 Atherosclerotic heart disease of native coronary artery without angina pectoris; I25.2 Old myocardial infarction; G89.29 Other chronic pain; Z91.041 Radiographic dye allergy status; Z91.048 Other nonmedicinal substance allergy status; Z79.4 Long term (current) use of insulin; Z79.82 Long term (current) use of aspirin; Z79.899 Other long term (current) drug therapy; Z79.51 Long term (current) use of inhaled steroids; L89.616 Pressure-induced deep tissue damage of right heel; E11.65 Type 2 diabetes mellitus with hyperglycemia; F43.10 Post-traumatic stress disorder, unspecified; E83.42 Hypomagnesemia; E87.6 Hypokalemia; I21.4 Non-ST elevation (NSTEMI) myocardial infarction; Z79.890 Hormone replacement therapy; D53.9 Nutritional anemia, unspecified; M62.562 Muscle wasting and atrophy, not elsewhere classified, left lower leg; M62.561 Muscle wasting and atrophy, not elsewhere classified, right lower leg
CPT/HCPCS: 36415; 71045-TC; 80048-TC; 80076-TC; 81001; 82962-TC; 83605-TC; 83735-TC; 84100-TC; 84439-TC; 84443-TC; 84484-TC; 85025-TC; 85730-TC; 87040-TC; 87081-TC; 87086-TC; 87186-TC; 94799-TC; 97116-TC; 97530-TC; G0378; J1650; J1815; J2270; J2405; J3475; J3480; J3490; J7030; J7042; J7050; U0003